=== PATIENT | female | born 1955 | race Caucasian/White ===

== ENCOUNTER 2020-12-19 15:01 | Outpatient (CLI) | payer BC, SELFPAY ==
--- NOTE | ~2020-12-19 | CT_ITS ---
EXAMINATION: CT sinus wo con DATE: 12/19/2020 15:22 INDICATION: Chronic sinusitis TECHNIQUE: Computed tomography (CT) of the paranasal sinuses was performed without contrast. Iterativ e reconstruction technique was employed. Exam dose: 293.24 mGy-cm total exam DLP. COMPARISON: FINDINGS: There is rightward deviation of the nasal septum. There is intralamellar cell of the middle nasal turbinates. The ostiomeatal units are normally developed and aerated. There is minimal mucoperiosteal thickening of the right maxillary sinus. The paranasal sinuses are otherwise normally developed and aerated. There is partial opacification of the right mastoid air cells. The left mastoid air cells are normally developed and aerated. IMPRESSION: Rightward deviation of nasal septum Intralamellar cell of both middle nasal turbinates Minimal mucoperiosteal thickening of right maxillary sinus Reviewed, dictated and finalized at [facility]. Reviewed, dictated and finalized at location A.
== END 2020-12-19 15:02 | disposition home or self-care (01) ==
PROVIDERS: PCP Family Medicine; Visit Provider Otolaryngology
DX: J32.9 Chronic sinusitis, unspecified (principal); J34.2 Deviated nasal septum
CPT/HCPCS: 70486

== ENCOUNTER 2022-01-19 17:37 | Outpatient (CLI) | payer BC, SELFPAY ==
--- NOTE | ~2022-01-19 | CT_ITS ---
EXAMINATION: CT abdomen pelvis wo con DATE: 01/19/2022 18:08 INDICATION: Abdominal pain TECHNIQUE: Computed tomography (CT) of the abdomen and pelvis was performed without intravenous contr ast. Automated exposure control and iterative reconstruction technique were employed. Exam dose: 306 .18 mGy-cm total exam DLP. COMPARISON: None. FINDINGS: The lung bases are clear of infiltrate or consolidation. Small calcified pulmonary granulom a in the posterolateral left costophrenic gutter. Normal heart size. No pericardial or pleural effusion. Bilateral breast implants. History of breast cancer. Occasional left hepatic 4 mm or smaller hypoattenuating lesions, too small to definitively characteri ze, very possibly small hepatic cysts. The gallbladder is present. No pericholecystic fluid or fat stranding or gallbladder wall thickening. No bile duct dilatation. No pancreatic mass lesion, calcification or ductal dilatation. Normal splenic size. Normal morphology of the adrenal glands. No renal mass lesion or urinary tract calculus or hydroureteronephrosis. The urinary bladder is unrem arkable. Retroverted uterus. Normal caliber of the abdominal aorta. No intraperitoneal or retroperitoneal or pelvic mass lesion or adenopathy or ascites. Normal appendix. No bowel obstruction or intraperitoneal free air Diffuse idiopathic skeletal hyperostosis of the thoracic spine Degenerative change of the lumbar spine including severe degenerative disc disease and mild retrolist hesis at L5-S1, moderate degenerative disc disease remaining lumbar interspaces. No suspicious osteolytic or osteoblastic lesions are noted. IMPRESSION: History of breast cancer; bilateral breast implants, likely reconstructive Occasional left hepatic small hypoattenuating lesions, too small to definitively characterize, most l ikely small hepatic cysts Normal appendix Diffuse idiopathic skeletal hyperostosis of the thoracic spine Multilevel degenerative disc disease of the lumbar spine, most severe at L5-S1 Reviewed, dictated and finalized at [facility]. Reviewed, dictated and finalized at location A. IMPRESSION: History of breast cancer; bilateral breast implants, likely recons tructive Occasional left hepatic small hypoattenuating lesions, too small to definitivel y characterize, most likely small hepatic cysts Normal appendix Diffuse idiopathic skeletal hyperostosis of the thoracic spine Multilevel degenerative disc disease of the lumbar spine, most severe at L5-S1
== END 2022-01-19 17:38 | disposition home or self-care (01) ==
PROVIDERS: PCP Family Medicine; Visit Provider Family Medicine
DX: R10.9 Unspecified abdominal pain (principal); Z85.3 Personal history of malignant neoplasm of breast; M48.14 Ankylosing hyperostosis [Forestier], thoracic region; M51.37 Other intervertebral disc degeneration, lumbosacral region
CPT/HCPCS: 74176

== ENCOUNTER 2022-05-01 20:08 | Emergency (ER) | payer BC, SELFPAY ==
--- NOTE | ~2022-05-01 | XR_ITS ---
EXAM: XR shoulder LT min 2V DATE: 05/01/2022 20:36 HISTORY: Fall, injury, pain prox Lt humerus . COMPARISON: None available. FINDINGS: Decreased mineralization. Mildly comminuted, mildly displaced fracture of the left humeral head with involvement of the greater tuberosity. No lytic or blastic lesion. Joint spaces are mainta ined. No erosion or periosteal change. Soft tissues within normal limits. IMPRESSION: Mildly comminuted, mildly displaced fracture of the left humeral head with involvement of the greater tuberosity. Reviewed, dictated and finalized at location K. IMPRESSION: Mildly comminuted, mildly displaced fracture of the left humeral he ad with involvement of the greater tuberosity.
[2022-05-01 20:14] VITALS: BP 136/67; PULSE 113; RESP 20; TEMP 36.7; O2SAT 100
--- NOTE | 2022-05-01 21:01 | ED.FALL ---
HPI - Fall General Chief Complaint: Fall Stated Complaint: fall, right arm pain Time Seen by Provider: 05/01/22 20:26 History of Present Illness HPI Narrative: 67-year-old female presents the emergency room for evaluation of left shoulder pain. Patient states that she was chasing her grandchildren at home, when she tripped and fell landing directly on her left shoulder. Patient states following the injury she was unable to move the shoulder. Denies any other injuries. Related Data Home Medications Medication Instructions Recorded Confirmed acidophilus 100 million 1 cap PO HS 05/28/19 04/26/22 cell-pectin, citrus 10 mg capsule (Acidophilus Probiotic) ascorbic acid (vitamin C) 500 mg 1,500 mg PO DAILY 05/28/19 04/26/22 tablet budesonide 32 mcg/actuation nasal 2 spray intranasal DAILY 05/28/19 04/26/22 spray (Rhinocort Allergy) calcium carbonate 600 mg calcium 1,800 mg PO DAILY 05/28/19 04/26/22 (1,500 mg) tablet (Calcium) cholecalciferol (vitamin D3) 125 7,000 unit PO DAILY 05/28/19 04/26/22 mcg (5,000 unit) tablet (Vitamin D3) loratadine 10 mg tablet (Claritin) 10 mg PO DAILY 05/28/19 04/26/22 multivitamin 1 tablet PO DAILY 05/28/19 04/26/22 vitamin B complex 1 tablet PO DAILY 05/28/19 04/26/22 cyanocobalamin (vitamin B-12) 2,500 mcg PO DAILY 04/06/22 04/26/22 2,500 mcg tablet Allergies Allergy/AdvReac Type Severity Reaction Status Date / Time sulfite Allergy Unknown FLUSHING, Verified 05/01/22 21:02 BREATHING PROBLEMS Beef Containing Products AdvReac Flushing Verified 05/01/22 21:02 cyclobenzaprine AdvReac Flushing Verified 05/01/22 21:02 [From Flexeril] monosodium glutamate AdvReac FLUSHING, Verified 05/01/22 21:02 SOB Review of Systems Review of Systems: CONSTITUTIONAL: Denies fever, chills, or sweats. EYES: Denies visual changes, redness, or discharge. ENT: Denies rhinorrhea, congestion, sore throat, or otalgia. CARDIOVASCULAR: Denies chest pain, palpitations, or edema. RESPIRATORY: Denies cough or dyspnea. GASTROINTESTINAL: Denies abdominal pain, nausea, vomiting, or diarrhea. GENITOURINARY: Denies dysuria or hematuria. SKIN: Denies rash or itching. MUSCULOSKELETAL: Reports left shoulder pain NEUROLOGIC: Denies headache, numbness, dizziness, or weakness. PSYCHIATRIC: Denies anxiety or depression. [facility] Past Medical History Medical History Allergies Hyperlipidemia Surgical History Surgical History Carpal tunnel syndrome on both sides Fracture, ankle History of breast reconstruction Family History Family History Father Patient's father is Acute myocardial infarction Mother Diabetes mellitus Hypertension Social History Social History Smoking status: Never smoker Alcohol intake: current Drinks per week: 2 Alcohol use details: wine Substance use: never Gender identity (if verbalized by the patient): Female Spiritual care concerns: No Exam Narrative: GENERAL: Well-appearing, well-nourished, no physical limitations, and in no acute distress. HEAD: Normocephalic, atraumatic. EYES: Conjunctivae normal, PERRLA and EOMI. CHEST: Clear to auscultation. No respiratory distress. No wheezes rales or rhonchi. HEART: Regular rate and rhythm. No murmur heard. Normal peripheral pulses. EXTREMITIES: LUE: Over the left humeral head. No obvious bony abnormality or ecchymosis. Unable to assess for range of motion due to pain. Full range of motion of the elbow and wrist joints. Neurovascular is intact distally. SKIN: Warm, dry, no rash. No noted wounds NEURO: No focal deficits. Alert and oriented x3. MAEW. CN's II-XI intact bilaterally, normal gait PSYCH: Cooperative. Normal mood and affect. Course Vital Si
[2022-05-01] MEDS: HYDROcodone/acetaminophen (*CRX) 5-325 MG TABLET 1 TAB PO (21:05)
== END 2022-05-01 21:29 | disposition home or self-care (01) ==
LOC: ANHED 21:23
PROVIDERS: Emergency Provider Nurse Practitioner Family; PCP Family Medicine
DX: S42.292A Other displaced fracture of upper end of left humerus, initial encounter for closed fracture (principal); W01.0XXA Fall on same level from slipping, tripping and stumbling without subsequent striking against object, initial encounter; E78.5 Hyperlipidemia, unspecified
CPT/HCPCS: 73030; 99284; A4565; A9270

== ENCOUNTER 2022-05-05 14:35 | Outpatient (CLI) | payer BC, SELFPAY ==
--- NOTE | ~2022-05-05 | CT_ITS ---
EXAMINATION: CT brain wo con DATE: 05/05/2022 14:54 INDICATION: Headache. Fall. TECHNIQUE: Computed tomography (CT) of the head was performed without intravenous contrast. The mA wa s adjusted according to patient size. Iterative reconstruction technique was employed. The dose-lengt h product was 605.33 mGy-cm. COMPARISON: None FINDINGS: There is no intracranial hemorrhage, acute infarction, or abnormal intracranial mass lesion . The ventricles are normal in size. The paranasal sinuses are clear. The orbits are normal. There is a small right mastoid effusion. IMPRESSION: 1. Normal brain. Reviewed, dictated and finalized at location B. IMPRESSION: 1. Normal brain.
== END 2022-05-05 14:36 | disposition home or self-care (01) ==
PROVIDERS: PCP Family Medicine; Visit Provider Family Medicine
DX: R51.9 Headache, unspecified (principal)
CPT/HCPCS: 70450

== ENCOUNTER 2022-07-05 13:15 | Outpatient (RCR) | payer BC, SELFPAY ==
[2022-06-14 09:30] VITALS: BP_SYST 66
--- NOTE | 2022-06-14 10:38 | PTOPEVAL1 ---
Assessment and note entered by Leo Wood, PT, DPT Evaluation Information Assessment Status Evaluation Diagnosis L prominal humerus fracture Onset 05/01 Subjective Information Pt reports today with a non operative L humerus fracture. She states she was told she could lift the weight of a fork or a spoon. She wears a sling only when her pain increases or when she is out in public. Her goals are to return to exercising and keep up with her grandkids. She states her pain in a 9 when she tries to use her arm. She is currently controlling her pain with extra strength Tylenol. Reported Pain Level Pain Score 1: Self Report Assessment PT Clinical Summary Sheila Khan is a 67 y/o female who presents to therapy today for her initial evaluation with a diagnosis of a L proximal humerus fracture. Today she demonstrates significant limitations in her ROM and active strength when compared to her uninvolved side. She demonstrates active shoulder flexion and abduction to ~30 deg ea. She is also lacking 30 degs from terminal elbow extension. Her passive shoulder motion is also limited by pain this date. Skilled physical therapy services are indicated to progress both active and passive ROM, improve strength, manage pain, to limit impairment, and to return to an unlimited baseline function. Plan of Care Interventions Electrical Stimulation,Hot Pack/Cold Pack,Manual Therapy,Neuro Re-education,Patient/Caregiver Educati,Therapeutic Activities,Therapeutic Exercise PT Services Indicated Yes Treatment Frequency and 2x/wk for 5 wks Duration These treatments will address the objective and functional deficits as defined above. The patient will be advanced safely and appropriately in order for the patient to progress towards his/her prior level of function. Additional exercises will be introduced and as well as a comprehensive home exercise program upon discharge, if needed, ?to ensure carryover of functional gains achieved in the clinic. This treatment plan has been reviewed and agreement upon by the patient.
--- NOTE | 2022-07-09 08:33 | PCPTNOTE ---
Patient called to cancel this date due to weather.
--- NOTE | 2022-07-13 07:56 | PCPTNOTE ---
Patient reports she is having a lot of pain and is contacting her MD today.
--- NOTE | 2022-07-14 16:15 | PCPTNOTE ---
Patient canceled her treatment this date due to pain in her knee.
--- NOTE | 2022-07-20 08:51 | PTOPDC ---
Assessment and note entered by Leo Wood, PT, DPT Evaluation Information Assessment Status Discharge - Pt Not Present Diagnosis L prominal humerus fracture Onset 05/01 Subjective Information Pt called the clinic and cancelled all of her remaining appointments. Per pt, her MD recommended that she stop physical therapy. Assessment PT Clinical Summary Sheila has completed 7 visits of therapy from 06/14 to 07/05/22. She will be discharged at this time. If she is to return at a later date, she will need a new order. Plan of Care Treatment Frequency and to be discharged Duration
== END 2022-07-21 15:42 | disposition home or self-care (01) ==
LOC: ANHGOSHPT 13:15
PROVIDERS: PCP Family Medicine; Visit Provider Orthopaedic Surgery
DX: S42.212D Unspecified displaced fracture of surgical neck of left humerus, subsequent encounter for fracture with routine healing (principal)
CPT/HCPCS: 97110; 97140; 97161

== ENCOUNTER 2022-07-16 01:56 | Day surgery (SDC) | payer BC, SELFPAY ==
[2022-04-26 15:09] VITALS: BMI 25.0
--- NOTE | 2022-06-23 09:22 | PC.NURSE ---
Pt was rescheduled from 05/13/22 to 07/01/22. PAT call was complete on 04/26/22. Called patient today. Patient states nothing has changed with her health history or medication information since the last PAT call, besides left broken humerus. Aware of new date and time of 07/01/22 at 0900/1030. Questions answered. Verbalizes understanding.
[2022-07-05 12:59] VITALS: BMI 25.0
[2022-07-16 12:19] VITALS: BP 143/57; PULSE 100; RESP 20; TEMP 36.7; O2SAT 98
[2022-07-16] MEDS: LACTATED RINGERS 1,000 ML 150 ML IV CONT (12:23)
--- NOTE | 2022-07-16 12:57 | PM.HPGS ---
History of Present Illness History of Present Illness Consent: Risks, benefits, and alternatives have been discussed and questions answered. Patient agrees to proceed with procedure. Chief complaint: epigastric pain, neoplasm screening Narrative: Sheila Ventura is a 67 year old female referred for investigation of persistent left upper quadrant and epigastric pain. She is also due for colon cancer screening. Review of Systems Review of Systems: All systems reviewed & are unremarkable except as noted in HPI and below PMFSH Past Medical History Medical History Allergies Breast cancer Fracture of surgical neck of left humerus Hyperlipidemia Surgical History Surgical History Carpal tunnel syndrome on both sides Fracture, ankle History of breast reconstruction Family History Family History Father Patient's father is Acute myocardial infarction Mother Diabetes mellitus Hypertension Social History Social History Smoking status: Never smoker Alcohol intake: current Drinks per week: 2 Alcohol use details: wine Substance use: never Living arrangements: with family Gender identity (if verbalized by the patient): Female Spiritual care concerns: No Meds Home Medications and Allergies Home Medications Medication Instructions Recorded Confirmed Type acidophilus 100 million 1 cap PO HS 05/28/19 07/15/22 History cell-pectin, citrus 10 mg capsule (Acidophilus Probiotic) ascorbic acid (vitamin C) 500 mg 1,500 mg PO DAILY 05/28/19 07/15/22 History tablet budesonide 32 mcg/actuation nasal 2 spray intranasal DAILY 05/28/19 07/15/22 History spray (Rhinocort Allergy) calcium carbonate 600 mg calcium 1,800 mg PO DAILY 05/28/19 07/15/22 History (1,500 mg) tablet (Calcium) cholecalciferol (vitamin D3) 125 7,000 unit PO DAILY 05/28/19 07/15/22 History mcg (5,000 unit) tablet (Vitamin D3) loratadine 10 mg tablet (Claritin) 10 mg PO DAILY 05/28/19 07/15/22 History multivitamin 1 tablet PO DAILY 05/28/19 07/15/22 History vitamin B complex 1 tablet PO DAILY 05/28/19 07/15/22 History cyanocobalamin (vitamin B-12) 2,500 mcg PO DAILY 04/06/22 07/15/22 History 2,500 mcg tablet ondansetron 4 mg disintegrating 4 mg PO Q6H PRN nausea and 04/06/22 07/15/22 Rx tablet vomiting #10 tabs acetaminophen 500 mg tablet 500 mg PO Q6H PRN Pain 06/09/22 07/15/22 History (Tylenol Extra Strength) ibuprofen 200 mg tablet (Motrin IB) 200 mg PO Q6H PRN Allergic Reaction 07/15/22 07/16/22 History methylprednisolone 4 mg tablets in See Rx Instructions PO PER PKG DIR 07/15/22 07/16/22 Rx a dose pack (Medrol (Vadim)) #21 ea Allergies Allergy/AdvReac Type Severity Reaction Status Date / Time sulfite Allergy Unknown FLUSHING, Verified 07/16/22 12:18 BREATHING PROBLEMS Beef Containing Products AdvReac Flushing Verified 07/16/22 12:18 cyclobenzaprine AdvReac Flushing Verified 07/16/22 12:18 [From Flexeril] monosodium glutamate AdvReac FLUSHING, Verified 07/16/22 12:18 SOB Vital Signs Vital Signs - 24 hr 07/16/22 12:19 Temperature 36.7 C Pulse Rate 100 Respiratory Rate 20 Blood Pressure 143/57 H Pulse Oximetry 98 Oxygen Delivery Room Air Exam Const: General: alert Orientation/consciousness: patient oriented x3 Resp: Auscultation: clear to auscultation bilaterally Cardio: Rhythm: regular rhythm GI: GI Palp: Yes Soft to palpation and No Tenderness to palpation present (GI) Neuro: General: patient oriented x3 Assessment and Plan Assessment and plan (1) Epigastric pain: Code(s): R10.13 - Epigastric pain Status: Acute Assessment and Plan: EGD with possible biopsy or dilatation or cautery. (2) Encount
--- NOTE | 2022-07-16 12:59 | WPDANESEPPF ---
Anes - Initial Pre Proc Eval Procedure: Operation Date: 07/16/22 13:30 Proposed Procedures p Esophagogastroduodenoscopy & Screening Colonoscopy - Stan Power MD Date/Time: 07/16/22 12:59 Surgeon: Stan Power MD Pre Op Diagnosis: epigastric pain, neoplasm screening Patient Data Age: 67 Gender: F Height: 1.55 m Weight: 59.5 kg Last Vital Signs Temp 36.7 C 07/16/22 12:19 Pulse 100 07/16/22 12:19 Resp 20 07/16/22 12:19 BP 143/57 H 07/16/22 12:19 Pulse Ox 98 07/16/22 12:19 O2 Del Method Room Air 07/16/22 12:19 Allergies Allergy/AdvReac Type Severity Reaction Status Date / Time sulfite Allergy Unknown FLUSHING, Verified 07/16/22 12:18 BREATHING PROBLEMS Beef Containing Products AdvReac Flushing Verified 07/16/22 12:18 cyclobenzaprine AdvReac Flushing Verified 07/16/22 12:18 [From Flexeril] monosodium glutamate AdvReac FLUSHING, Verified 07/16/22 12:18 SOB Home Medications Medication Instructions Recorded Confirmed Type acidophilus 100 million 1 cap PO HS 05/28/19 07/15/22 History cell-pectin, citrus 10 mg capsule (Acidophilus Probiotic) ascorbic acid (vitamin C) 500 mg 1,500 mg PO DAILY 05/28/19 07/15/22 History tablet budesonide 32 mcg/actuation nasal 2 spray intranasal DAILY 05/28/19 07/15/22 History spray (Rhinocort Allergy) calcium carbonate 600 mg calcium 1,800 mg PO DAILY 05/28/19 07/15/22 History (1,500 mg) tablet (Calcium) cholecalciferol (vitamin D3) 125 7,000 unit PO DAILY 05/28/19 07/15/22 History mcg (5,000 unit) tablet (Vitamin D3) loratadine 10 mg tablet (Claritin) 10 mg PO DAILY 05/28/19 07/15/22 History multivitamin 1 tablet PO DAILY 05/28/19 07/15/22 History vitamin B complex 1 tablet PO DAILY 05/28/19 07/15/22 History cyanocobalamin (vitamin B-12) 2,500 mcg PO DAILY 04/06/22 07/15/22 History 2,500 mcg tablet ondansetron 4 mg disintegrating 4 mg PO Q6H PRN nausea and 04/06/22 07/15/22 Rx tablet vomiting #10 tabs acetaminophen 500 mg tablet 500 mg PO Q6H PRN Pain 06/09/22 07/15/22 History (Tylenol Extra Strength) ibuprofen 200 mg tablet (Motrin IB) 200 mg PO Q6H PRN Allergic Reaction 07/15/22 07/16/22 History methylprednisolone 4 mg tablets in See Rx Instructions PO PER PKG DIR 07/15/22 07/16/22 Rx a dose pack (Medrol (Vadim)) #21 ea Patient hx anesthesia problems: none Family hx anesthesia problems: none Results Review: All pre-operative results and documents have been reviewed as part of the pre-operative evaluation. [facility] Past Medical History Medical History Allergies Breast cancer Fracture of surgical neck of left humerus Hyperlipidemia Surgical History Surgical History Carpal tunnel syndrome on both sides Fracture, ankle History of breast reconstruction Family History Family History Father Patient's father is Acute myocardial infarction Mother Diabetes mellitus Hypertension Social History Social History Smoking status: Never smoker Alcohol intake: current Drinks per week: 2 Alcohol use details: wine Substance use: never Living arrangements: with family Gender identity (if verbalized by the patient): Female Spiritual care concerns: No Anes - Eval Final PreProcedure Day of Procedure 07/16/22 12:59 Patient weight: normal Heart: regular rate and rhythm Lungs: clear to auscultation and normal air movement Airway: Mallampati scale class II Neurological: alert and oriented Last oral intake: >/= 8 hours ASA classification: II Emergent: no Anesthetic plan: proceed Anesthesia type and monitoring: general GIVS and standard monitoring Results Review: All pre-operative results and documents have been reviewed as part of t
[2022-07-16] MEDS: BENZOCAINE (*SP) 60 ML SPRAY CAN (HURRICAINE) 1 SPRAY MUCOUS MEM (13:13)
--- NOTE | 2022-07-16 13:35 | SUR.OPER ---
EGD START 1314, END 1317 COLONOSCOPY START 1323, END 1334
[2022-07-16 13:38] VITALS: BP 114/69; PULSE 70; RESP 17; O2SAT 95
[2022-07-16 13:48] VITALS: BP 113/72; PULSE 71; RESP 18; O2SAT 95
[2022-07-16 13:58] VITALS: BP 123/74; PULSE 82; RESP 19; O2SAT 98
== END 2022-07-16 14:10 | disposition home or self-care (01) ==
PROVIDERS: PCP Family Medicine; Visit Provider Internal Medicine Gastroenterology
PROC: 0DJ08ZZ Inspection of Upper Intestinal Tract, Via Natural or Artificial Opening Endoscopic (ICD-10-PCS; CPT 43235; principal; 2022-07-16 13:30)
DX: Z12.11 Encounter for screening for malignant neoplasm of colon (principal); K64.8 Other hemorrhoids; K21.9 Gastro-esophageal reflux disease without esophagitis; Z85.3 Personal history of malignant neoplasm of breast
CPT/HCPCS: 45378; 43239; 87081; J2704; J7120

== ENCOUNTER 2022-09-16 10:06 | Outpatient (CLI) | payer BC, SELFPAY ==
--- NOTE | ~2022-09-16 | US_ITS ---
US right upper quadrant INDICATION: Abdominal pain PROCEDURE: Realtime right upper abdominal ultrasound. COMPARISON: No prior studies for comparison. FINDINGS: The pancreas is normal without focal mass or pancreatic ductal dilation. Liver echotexture is increased, consistent with fatty infiltration. There is a 7 mm cyst of the liver. There is yeni l directional flow in the portal vein. The gallbladder is normal without stones, gallbladder wall thickening or pericholecystic fluid. Comm on bile duct measures 2 mm. No sonographic Alcantar's sign. IMPRESSION: 1: Hepatic steatosis. Reviewed, dictated and finalized at location L. NESS DEVELOPMENT RECRUITER IMPRESSION: 1: Hepatic steatosis.
--- NOTE | ~2022-09-16 | US_ITS ---
US soft tissue head and neck 09/16/2022 10:43 Indication: Palpable abnormality of the anterior neck just superior to the manubrium. Procedure: High-resolution ultrasound of the anterior neck in the area of palpable concern Comparison: No prior studies for comparison. Findings: There is normal heterogeneous echotexture in the area of palpable concern. No discrete yazmin d or cystic masses are identified Impression: 1: Normal limited ultrasound of the anterior aspect of the neck in the area of palpable concern. No d iscrete mass. Reviewed, dictated and finalized at location L. PRESIDENT OF PROCUREMENT Impression: 1: Normal limited ultrasound of the anterior aspect of the neck in the area of palpable concern. No discrete mass.
== END 2022-09-16 10:07 | disposition home or self-care (01) ==
PROVIDERS: PCP Family Medicine; Visit Provider Family Medicine
DX: R10.9 Unspecified abdominal pain (principal); R22.1 Localized swelling, mass and lump, neck; K76.0 Fatty (change of) liver, not elsewhere classified
CPT/HCPCS: 76536; 76705

== ENCOUNTER 2022-11-05 13:21 | Outpatient (CLI) | payer BC, SELFPAY ==
--- NOTE | ~2022-11-05 | DEXA_ITS ---
Bone Density Report Name: MATT BERRY Age: 67 Sex: Female Ethnicity: White Date of : 1955 Indication: postmenopausal; screening for osteoporosis; prior fracture; cancer; Referring Provider: ARTUR LOZANO Study: Bone densitometry was performed. Exam Date: November 05, 2022 Accession number: [id number] Bone Density: Region BMD T-score Z-score Classification AP Spine(L1-L4) 0.853 -1.8 0.2 Osteopenia Femoral Neck (Left) 0.602 -2.2 -0.6 Osteopenia Total Hip (Left) 0.796 -1.2 0.2 Osteopenia Femoral Neck (Right) 0.652 -1.8 -0.1 Osteopenia Total Hip (Right) 0.820 -1.0 0.4 Normal Total Hip Mean 0.808 -1.1 0.3 Osteopenia World Health Organization criteria for BMD impression classify patients as: Normal (T-score at or above -1.0), Osteopenia (T-score between -1.0 and -2.5), or Osteoporosis (T-score at or below -2.5). 10-year Fracture Risk(1): Major Osteoporotic Fracture 19% Hip Fracture 3.6% Reported Risk Factors: [place] (), Neck BMD=0.602, BMI=25.3, previous fracture (1) FRAX(R) Version 3.08. Fracture probability calculated for an untreated patient. Fracture probability may be lower if the patient has received treatment. Clinical Information Provided by Patient: Has had a low trauma fracture Has used the following medications: Vitamin D, Calcium Has the following medical conditions: Cancer Patient maximum height was 61 Menopause Age: 54 Does not regularly consume dairy products Drinks caffeinated beverages Onset of menses at age 12 Number of children 3 Impression: The patient has low bone mass, based on the Left Femoral Neck T-score. The patient has an estimated ten-year risk of hip fracture of 3.6% and an estimated ten-year risk of major fracture of 19%, based on the WHO FRAX algorithm. The patient has risk factors, including: previous fracture. Discussion: BONE DENSITY IS LOW AT ONE OR MORE SKELETAL SITES. THE PATIENT'S BMD AND CLINICAL RISK FACTORS CONTRIBUTE TO THIS PATIENT'S INCREASED RISK OF FRACTURE. This patient's lowest T-score is low at one or more skeletal sites. It meets the World Health Organization's (WHO) criteria for ?low bone mass? (T-score between -1.0 and -2.5). The patient's 10-year risk of hip fracture as calculated by FRAX exceeds the threshold where pharmacological therapy is recommended by the National Osteoporosis Foundation (NOF). However, all treatment decisions require clinical judgment and consideration of individual patient factors, including patient preferences, comorbidities, previous drug use, risk factors not captured in the FRAX model (e.g., frailty, falls, vitamin D deficiency, increased bone turnover, interval significant decline in bone density) and possible under or overestimation of fracture risk by FRAX. The patient should fo
== END 2022-11-05 13:22 | disposition home or self-care (01) ==
PROVIDERS: PCP Family Medicine; Visit Provider Family Medicine
DX: Z78.0 Asymptomatic menopausal state (principal); M85.88 Other specified disorders of bone density and structure, other site; M85.852 Other specified disorders of bone density and structure, left thigh; M85.851 Other specified disorders of bone density and structure, right thigh
CPT/HCPCS: 77080

== ENCOUNTER → 2022-11-18 07:29 | Outpatient (CLI) | payer BC, SELFPAY ==
--- NOTE | ~2022-11-18 | MR_ITS ---
EXAMINATION: MR knee LT wo con DATE: 11/18/2022 08:13 INDICATION: Left knee pain TECHNIQUE: Magnetic resonance imaging (MRI) of the left knee was performed without intravenous contra st. Sequences included coronal PD-weighted FSE, coronal PD-weighted FS FSE, sagittal T2-weighted FSE , sagittal PD-weighted FS FSE and axial PD weighted fat saturated FSE. COMPARISON: None. FINDINGS: Medial compartment: Avulsion of the posterior root of the medial meniscus. Mild partial-thickness cartilage loss with cho ndral surface regularity and mild scattered subarticular edema-like signal change along the anterior to central weightbearing medial femoral condyle. Is unclear where the edema-like signal change is rel ated to the overlying chondromalacia or reactive change related to altered stress distribution result ing from the meniscal tear. Cartilage is normal along the medial tibial plateau. Lateral compartment: Lateral meniscus is normal. Articular cartilage is normal. Patellofemoral compartment: Articular cartilage is normal. Ligaments and tendons: Anterior and posterior cruciate ligaments are normal. The medial collateral ligament and fibular ankit ateral ligament complex are normal. The extensor mechanism is normal. The visualized medial and later al hamstring tendons as well as the iliotibial band are normal. Fluid: Small left knee joint effusion. There is a suprapatellar plical band. No loose osteochondral bodies i dentified. Osseous/other: Aside from at the medial femoral condyle there is normal marrow signal. No fracture or pathologic mar row replacing process. IMPRESSION: 1. Avulsion of the posterior root of the medial meniscus. 2. 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 Reviewed, dictated and finalized at location L. IMPRESSION: 1. Avulsion of the posterior root of the medial meniscus. 2. Mild osteoarthritis with moderate to potentially high-grade chondromalacia a long the medial femoral condyle.
== END ==
PROVIDERS: PCP Family Medicine; Visit Provider Orthopaedic Surgery
DX: M17.12 Unilateral primary osteoarthritis, left knee (principal)
CPT/HCPCS: 73721

== ENCOUNTER 2023-08-19 00:32 | Day surgery (SDC) | payer BC, SELFPAY ==
--- NOTE | 2023-08-12 11:00 | PC.NURSE ---
Report to the Outpatient Waiting Room, entrance under the green pavilion located off [facility], at time _0630 on date _08/19/23 . Planned Procedure Time: 0830 . Time changes happen often and if your time is changed the preop area will call you the afternoon before. - You and your visitor will be asked to self-screen and do not enter if you have any COVID symptoms. - A mask is optional within the hospital at this time. Patients may have clear liquids (water, carbonated beverages, clear teas, apple juice) until 3 hours prior to surgery(0530) with a maximum of 20 ounces. - No food from midnight until time of surgery - Infants may have breast milk until 4 hours before surgery, infant formula 6 hours prior to surgery. - Children will be allowed to drink immediately following surgery. If applicable, please bring a bottle or sippy cup to assist with drinking. Juice, water, soda, and popsicles are readily available. For infants on formula, please bring formula the day of surgery. Pacifiers are allowed. Take the following medications with a SIP of water the morning of surgery: __NONE DO NOT STOP ANY OF YOUR OTHER PRESCRIPTION MEDICATIONS PRIOR TO SURGERY ?EXCEPT THE FOLLOWING Medications to discontinue per physician __PT STATES HOLD ALL VITAMINS AND SUPPLEMENTS .LAST DOSE 08/12/[address] ALEXIS Please no make-up, nail vietnamese, hairspray, perfume, deodorant, or body powder the day of surgery. No jewelry (including any body piercings) or valuables the day of surgery, leave them at home. Please take a shower or bath the night before, or the morning of, surgery with an antibacterial soap. Wear comfortable, loose fitting clothing. Children are encouraged to wear pajamas. - Jewelry must be removed prior to entering the operating room. Rings and piercings that are not removed may be cut off. - The hospital will not accept responsibility for valuables. - Please leave all valuables, including medications, at home the day of surgery. If you are going home after surgery, a licensed lift driver must drive you home. - NO public transportation without another adult if you receive anesthesia. - We recommend that an adult stay with you for 24 hours following discharge. - We also recommend that you do not drive, make important decision, drink alcoholic beverages, or take any drugs that were not prescribed by your health care provider for at least 24 hours after your discharge time. For Pediatric surgeries, we recommend two adults accompany the child home. Follow any additional instructions given to you from your surgeon. If you or anyone in your household have experienced Covid symptoms in the past week, please notify your surgeon or the nurse liaison at the phone number below for possible testing. Telephone instructions given to __PATIENT and asked if any additional questions and then verbalized understanding. Patient advised to call surgeon office or pre surgery nurse liaison [phone] if any additional questions.
[2023-08-12 11:07] VITALS: BMI 24.9
[2023-08-19] VITALS (7 sets, daily range): BP systolic 108–141; BP diastolic 60–72; PULSE 60–95; RESP 10–20; TEMP 36.7–37; O2SAT 96–100
--- NOTE | ~2023-08-19 | XR_ITS ---
EXAMINATION: XR surgery orthopedic DATE: 08/19/2023 09:48 INDICATION: Left foot arthrodesis. TECHNIQUE: 2 intraoperative spot fluoroscopic views of left foot were obtained. I was not present. Fl uoroscopy exposure time was 11 seconds. COMPARISON: Left foot radiographs 09/08/2017 FINDINGS: There are changes of arthrodesis procedure of first metatarsophalangeal joint with dorsal p late and multiple screws. A calcification medial to head of first metatarsal has been resected. IMPRESSION: 1. Arthrodesis of first metatarsophalangeal joint. Reviewed, dictated and finalized at location A. C BOOK ARTIST
--- NOTE | 2023-08-19 07:12 | WPDHPUPDATE1 ---
History and Physical Update Update Date/Time: 08/19/23 07:12 History and Physical has been reviewed, including an updated exam of the patient. There are NO changes in the patient's condition. Risks, benefits, and alternatives have been discussed and questions answered. Patient agrees to proceed with procedure.
[2023-08-19] MEDS: LACTATED RINGERS 1,000 ML 30 ML IV CONT ×2 (07:20→09:50)
--- NOTE | 2023-08-19 08:05 | WPDANESEPPF ---
Anes - Initial Pre Proc Eval Procedure: Operation Date: 08/19/23 08:30 Proposed Procedures p Arthrodesis First Metatarsal Phalangeal Joint Left Foot - Jovon Vargas JR, MD Date/Time: 08/19/23 08:05 Surgeon: Jovon Vargas JR, MD Pre Op Diagnosis: Arthroitic Bunion Lt Foot Patient Data Age: 68 Gender: F Height: 1.55 m Weight: 60.1 kg Last Vital Signs Temp 98.0 F 08/19/23 06:40 Pulse 83 08/19/23 06:40 Resp 20 08/19/23 06:40 BP 141/66 H 08/19/23 06:40 Pulse Ox 99 08/19/23 06:40 O2 Del Method Room Air 08/19/23 06:40 Allergies Allergy/AdvReac Type Severity Reaction Status Date / Time sulfite Allergy Mild FLUSHING, Verified 08/12/23 10:48 BREATHING PROBLEMS cyclobenzaprine AdvReac Severe DRY EYES Verified 08/12/23 10:48 [From Flexeril] Beef Containing Products AdvReac Mild Gastrointestinal Verified 08/12/23 10:48 Upset monosodium glutamate AdvReac Mild FLUSHING, Verified 08/12/23 10:48 SOB Home Medications Medication Instructions Recorded Confirmed Type acidophilus 100 million 1 cap PO HS 05/28/19 08/19/23 History cell-pectin, citrus 10 mg capsule (Acidophilus Probiotic) ascorbic acid (vitamin C) 500 mg 1,500 mg PO DAILY 05/28/19 08/19/23 History tablet budesonide 32 mcg/actuation nasal 2 spray intranasal DAILY 05/28/19 08/19/23 History spray (Rhinocort Allergy) calcium carbonate 600 mg calcium 600 mg PO BID 05/28/19 08/19/23 History (1,500 mg) tablet (Calcium) cholecalciferol (vitamin D3) 125 5,000 unit PO DAILY 05/28/19 08/19/23 History mcg (5,000 unit) tablet (Vitamin D3) loratadine 10 mg tablet (Claritin) 10 mg PO DAILY 05/28/19 08/19/23 History vitamin B complex 1 tablet PO DAILY 05/28/19 08/19/23 History magnesium 200 mg tablet 400 mg PO DAILY 08/12/23 08/19/23 History Patient hx anesthesia problems: none Family hx anesthesia problems: none Results Review: All pre-operative results and documents have been reviewed as part of the pre-operative evaluation. [facility] Past Medical History Medical History Allergies Ankle fracture Asymptomatic menopausal state Breast cancer (~2010) Dizziness Fracture of surgical neck of left humerus Hyperlipidemia Left knee pain Osteopenia Pes anserinus bursitis of left knee Surgical History Surgical History H/O colonoscopy H/O esophagogastroduodenoscopy History of breast reconstruction History of carpal tunnel surgery (~2009) (B) wrists History of mastectomy (~2010) History of open reduction and internal fixation (ORIF) procedure (~05/2019) (L) ankle Hx of LASIK (~2001) Family History Family History Father Patient's father is Acute myocardial infarction Heart disease Mother Diabetes mellitus Hypertension Kidney disease Other Carcinoma of colon maternal aunt Grandparent Carcinoma of colon maternal grandmother Social History Social History (Updated 08/10/23 @ 10:19 by ELISA Echeverria) Smoking status: Never smoker Second hand tobacco smoke exposure: No Alcohol intake: current Drinks per week: 2 Alcohol use details: wine Substance use: never Substance use type: does not use Do You Feel Safe in your Home?: Yes Lack of Transportation: No Lack of Food: Never True Current Housing: I Have Housing Concerned About Future Housing: No Difficulty Paying Gas/Electric Bills: No Difficulty Paying for Meds: No 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ation: Associate Degree Difficulty w/ Childcare or Family Care: No Living arrangements: with family Additional living arrangements comments: Occupation/Education: retired Gender identity (if verbalized by the patient): Female Sexual Orientation (if Verbalized by the Patient): Stra
[2023-08-19] MEDS: ceFAZolin 2 GM/D5W 50 ML 2 GM/50 ML BAG IVPB (08:36)
--- NOTE | 2023-08-19 09:57 | WPDANESPNB ---
Anes - Peripheral Nerve Block Date/Time: 08/19/23 09:57 I have discussed with the patient/family/POA the placement of a peripheral nerve block for post-operative pain management, including associated risks, benefits, complications, and side effects. Alternative methods of post-operative analgesia were detailed. Questions were solicited and answers provided to the satisfaction of the patient/family/POA. Time-Out: A pre-procedural Time-Out was completed immediately before starting the procedure and confirmed: Patient Identification, Site, Procedure, Patient Position and the Availability of Requisite Equipment. Clinical Indications: Acute post-operative pain management requested by the operative surgeon. Nerve Block Insertion Note Anes-nerve block: posterior fossa sciatic left and other (Saphenous left) Patient position: supine Skin prep: chlorhexidine Needle: 22 gauge, stimulating, insulated echogenic needle. Needle length: 80 mm Technique: nerve stimulation lost at (mA) (0.3) Technique comment: mid2mg [id number] Injectate: bupivacaine 0.5% with epi 5 mcg/ml (20/10ml no epi) and dexamethasone (mg) (4) Observations: tolerated well Complications: none Procedure start time:: 822 Procedure end time:: 829
--- NOTE | 2023-08-19 10:00 | W.PM.PROC2 ---
Procedure Note - Detailed Date of Procedure 08/19/23 Pre-op Diagnosis Arthritic Bunion Left Foot Post-op Diagnosis Same Procedure Performed Arthrodesis of the first metatarsal phalangeal joint left foot Surgeon Jovon Vargas JR, MARITZA Anesthesia General and Regional Indications Painful left forefoot Findings same Description of Procedure PROCEDURE IN DETAIL: Under mild sedation, the patient was brought into the operating room, placed on the operating table in supine position. A pneumatic ankle tourniquet was placed about the patient's ipsilateral ankle. Following general anesthesia and a popliteal fossa block, the foot was then scrubbed, prepped, and draped in the usual aseptic manner. An Esmarch bandage was then used to exsanguinate the patient's foot and the pneumatic ankle tourniquet was then inflated. Surgery began in the following manner: Attention was directed to the dorsal medial aspect of the 1st metatarsophalangeal joint where there was a prominence was noted. The incision was made starting along the central shaft of the 1st metatarsal and extending just proximal to the interphalangeal joint of the hallux. The incision was continued deep down through the subcutaneous tissues using sharp and blunt dissection. All bleeders were cauterized as necessary. At this point, the dissection was continued down to the level of the periosteum and capsular structures overlying the 1st metatarsophalangeal joint. A full length periosteum and capsular incision was made just medial to the extensor hallucis longus tendon. The periosteum and capsular structures were freed from the base of the proximal phalanx as well as the distal 1st metatarsal. At this point, the 1st metatarsophalangeal joint was identified. There was loss of articular cartilage to the head of the 1st metatarsal as well as the base of the proximal phalanx worse centrally and medially. There was significant broadening and hypertrophy of the 1st metatarsophalangeal joint. Utilizing a sagittal bone saw, the hypertrophied 1st metatarsal was resected dorsally, medially, and laterally. A power bur was used to make sure that there were no rough edges and also to further d?bride the hypertrophic 1st metatarsal. Next, a rongeur was used to resect the hypertrophic base of the proximal phalanx. At this point, the reamer system for the Maxforce plate system was used to denude the degenerative cartilage from the head of the 1st metatarsal as well as the base of the proximal phalanx. The cartilage and subchondral bone were fully debrided utilizing the reamer system until healthy bleeding bone was noted. Next, a 2-0 drill bit was used to further fenestrate the head of the 1st metatarsal as well as the base of the proximal phalanx in order to allow fusion across the 1st metatarsophalangeal joint. Next, a guide wire for a 3.0 Cannulated Arthrex Quickfix screw was driven from the medial aspect of the base of the proximal phalanx into the head of the 1st metatarsal in order to serve as temporary fixation, next the cannulated screw was driven and provided excellent compression. Next A large steel plate was used to make sure that the hallux was in a rectus position both in the sagittal plane as well as the frontal plane. Excellent position of the hallux was noted. Next, a Maxforce plate was placed atop the 1st metatarsophalangeal joint held in position with [place] wires. Utilizing standard principles and techniques, the distal drill holes were drilled and three 3.0 mm mm fully-threaded locking screws were driven from dorsal to plantar holding the distal aspect of the plate intact. At this point, the Maxforce compression system was utilized from dorsal distal to proximal plantar across the 1st metatarsophalangeal joint with excellent compression noted. Next, a 3.0mm locking screw was used to further compress the joint along the oblong dynamic compression screw slot. Next, the remaining 2 prox
== END 2023-08-19 11:46 | disposition home or self-care (01) ==
PROVIDERS: PCP Family Medicine; Visit Provider Podiatrist Foot & Ankle Surgery
PROC: (CPT 28750; principal; 2023-08-19 08:30)
DX: M21.612 Bunion of left foot (principal); G89.18 Other acute postprocedural pain; Z85.3 Personal history of malignant neoplasm of breast
CPT/HCPCS: 28750; 64445; 64450; 99199; C1713; J0690; J1100; J2250; J2405; J2704; J3010; J7120

== ENCOUNTER 2023-11-02 10:28 | Outpatient (CLI) | payer BC, SELFPAY ==
--- NOTE | ~2023-11-02 | XR_ITS ---
Left Hand Technique: PA, oblique, and lateral views were obtained. Clinical History: Pain Findings: No acute fracture or dislocation is seen. Osseous alignment is anatomic. Joint spaces are p reserved. Soft tissues are unremarkable. Impression: Unremarkable left hand. Reviewed, dictated and finalized at location M. Impression: Unremarkable left hand.
== END 2023-11-02 10:29 ==
PROVIDERS: PCP Family Medicine; Visit Provider Family Medicine
DX: M79.642 Pain in left hand (principal)
CPT/HCPCS: 73130

== ENCOUNTER 2024-01-19 09:46 | Emergency (ER) | payer BC, SELFPAY ==
[2024-01-19 10:03] VITALS: BP 132/84; PULSE 73; RESP 16; TEMP 35.7; O2SAT 99
--- NOTE | 2024-01-19 10:10 | ED.URI ---
HPI - URI/Sore Throat General Chief Complaint: Upper Respiratory Infection Stated Complaint: SORE THROAT Time Seen by Provider: 01/19/24 10:25 Source: patient and RN notes reviewed Mode of arrival: ambulatory Limitations: no limitations History of Present Illness HPI Narrative: 68-year-old female presents with concern for sore throat, cough. Reports pain got worse last night. She reports right ear pain. She denies fever, body aches, chills, sweats. She denies headache, stomach ache. She reports she has been using throat lozenges. MD elicited complaint: cough and sore throat Related Data Home Medications Medication Instructions Recorded Confirmed acidophilus 100 million 1 cap PO HS 05/28/19 01/19/24 cell-pectin, citrus 10 mg capsule (Acidophilus Probiotic) ascorbic acid (vitamin C) 500 mg 1,500 mg PO DAILY 05/28/19 01/19/24 tablet budesonide 32 mcg/actuation nasal 2 spray intranasal DAILY 05/28/19 01/19/24 spray (Rhinocort Allergy) calcium carbonate (Calcium 600) 600 mg PO BID 05/28/19 01/19/24 cholecalciferol (vitamin D3) 125 5,000 unit PO DAILY 05/28/19 01/19/24 mcg (5,000 unit) tablet (Vitamin D3) loratadine 10 mg tablet (Claritin) 10 mg PO DAILY 05/28/19 01/19/24 vitamin B complex 1 tablet PO DAILY 05/28/19 01/19/24 magnesium 200 mg tablet 400 mg PO DAILY 08/12/23 01/19/24 Allergies Allergy/AdvReac Type Severity Reaction Status Date / Time sulfite Allergy Mild FLUSHING, Verified 01/19/24 10:09 BREATHING PROBLEMS cyclobenzaprine AdvReac Severe DRY EYES Verified 01/19/24 10:09 [From Flexeril] Beef Containing Products AdvReac Mild Gastrointestinal Verified 01/19/24 10:09 Upset monosodium glutamate AdvReac Mild FLUSHING, Verified 01/19/24 10:09 SOB Review of Systems Review of Systems: CONSTITUTIONAL: Denies malaise, chills, sweats, or fever. EYES: Denies visual changes, redness, or discharge. ENT: Denies rhinorrhea, congestion, sinus pain. Reports otalgia and sore throat. CARDIOVASCULAR: Denies chest pain, palpitations, or edema. RESPIRATORY: Reports cough. Denies dyspnea. GASTROINTESTINAL: Denies abdominal pain, nausea, vomiting, diarrhea SKIN: Denies rash or itching. MUSCULOSKELETAL: Denies myalgia. NEUROLOGIC: Denies headache. All systems reviewed & are unremarkable except as noted in HPI and below PMFSH Past Medical History Medical History Allergies Ankle fracture Asymptomatic menopausal state Breast cancer (~2010) Dizziness Fracture of surgical neck of left humerus Hyperlipidemia Left knee pain Osteopenia Pes anserinus bursitis of left knee Surgical History Surgical History H/O colonoscopy H/O esophagogastroduodenoscopy History of breast reconstruction History of carpal tunnel surgery (~2009) (B) wrists History of mastectomy (~2010) History of open reduction and internal fixation (ORIF) procedure (~05/2019) (L) ankle Hx of LASIK (~2001) Family History Family History Father Patient's father is Acute myocardial infarction Heart disease Mother Diabetes mellitus Hypertension Kidney disease Other Carcinoma of colon maternal aunt Grandparent Carcinoma of colon maternal grandmother Social History Social History (Updated 08/10/23 @ 10:19 by ELISA Echeverria) Smoking status: Never smoker Second hand tobacco smoke exposure: No Alcohol intake: current Drinks per week: 2 Alcohol use details: wine Substance use: never Substance use type: does not use Do You Feel Safe in your Home?: Yes Lack of Transportation: No Lack of Food: Never True Current Housing: I Have Housing Concerned About Future Housing: No Difficulty Paying Gas/Electric Bills: No Difficulty Paying for Meds: No 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
== END 2024-01-19 10:43 | disposition home or self-care (01) ==
PROVIDERS: Emergency Provider Nurse Practitioner
DX: J02.0 Streptococcal pharyngitis (principal); E78.5 Hyperlipidemia, unspecified; M85.80 Other specified disorders of bone density and structure, unspecified site; Z85.3 Personal history of malignant neoplasm of breast
CPT/HCPCS: 87880; 99213; G0463

== ENCOUNTER 2024-05-03 08:36 | Outpatient (CLI) | payer BC, SELFPAY ==
--- NOTE | ~2024-05-03 | MR_ITS ---
MRI of the lumbar spine Clinical History: Right foot pain Technique: Axial T2-weighted images, and sagittal T1-weighted, T2-weighted, and T2 fat-sat images wer e acquired. COMPARISON: Findings: Stable 5 mm retrolisthesis of L5 over S1. No fracture seen. Osseous alignment is unchanged. No suspicious bone marrow signal abnormality seen. At L1-L2 and L2-L3, there is no disc bulge or herniation. There is moderate facet hypertrophy at thes e levels. No spinal canal stenosis or definite neural foraminal narrowing at these levels. At L3-L4, there is no significant disc bulge or herniation. There is moderate facet hypertrophy. No s alireza canal stenosis or neural foraminal narrowing. At L4-L5, there is mild degenerative disc narrowing with minimal disc bulge. There is moderate facet hypertrophy. No spinal canal stenosis or neural foraminal narrowing. At L5-S1, there is advanced degenerative disc narrowing. There is diffuse disc bulge with superimpose d small central disc protrusion extending superiorly. There is mild effacement of the ventral thecal sac. There is moderate bilateral neural foraminal narrowing. Paravertebral soft tissues are unremarkable. Impression: Small central disc protrusion at L5-S1 extending superiorly, with mild effacement of the ventral thec al sac. Moderate bilateral neural foraminal narrowing at this level. Additional mild degenerative changes, as above. Stable 5 mm retrolisthesis of L5 over S1. Reviewed, dictated and finalized at [facility]. Impression: Small central disc protrusion at L5-S1 extending superiorly, with mild effaceme nt of the ventral thecal sac. Moderate bilateral neural foraminal narrowing at this level. Additional mild degenerative changes, as above. Stable 5 mm retrolisthesis of L5 over S1.
== END 2024-05-03 08:37 | disposition home or self-care (01) ==
LOC: ANHIMG 08:40
PROVIDERS: PCP Nurse Practitioner Family; Referring Provider Pain Medicine Pain Medicine; Visit Provider Nurse Practitioner Family
DX: M79.671 Pain in right foot (principal); R20.0 Anesthesia of skin; R20.2 Paresthesia of skin; M51.27 Other intervertebral disc displacement, lumbosacral region; M51.369 Other intervertebral disc degeneration, lumbar region without mention of lumbar back pain or lower extremity pain
CPT/HCPCS: 72148

== ENCOUNTER 2024-08-22 12:53 | Outpatient (CLI) | payer BC, SELFPAY ==
--- NOTE | ~2024-08-22 | US_ITS ---
US breast LT limited 08/22/2024 13:38 Indication: No history of breast cancer. Status post bilateral mastectomy. Silicone implants. Procedure: High-resolution Limited left breast ultrasound Comparison: No prior studies for comparison. Findings: In the axilla there is a normal-appearing lymph node with fatty hilum and no cortical thick ening. The left breast at 2:00, 9 cm from the nipple there is an oval hypoechoic mass with area of in creased echogenicity peripherally measuring 8 x 6 x 4 mm. There is marginal vascularity. No significa nt posterior features. Near the nipple area there is a slightly irregular shaped hypoechoic mass with internal echogenicity, possibly representing a lymph node measuring 7 mm. No internal vascularity or significant posterior features. Impression: 1: Left breast masses which are indeterminate including a millimeter mass at 2:00, 9 cm from the nipp le and 7 mm mass near the nipple. Recommendation: Recommend correlation with MRI of the breasts with contrast. BI-RADS CATEGORY 0 - INCOMPLETE STUDY, NEED ADDITIONAL IMAGING EVALUATION. Reviewed, dictated and finalized at location B. ER SWEEP Impression: 1: Left breast masses which are indeterminate including a millimeter mass at 2: 00, 9 cm from the nipple and 7 mm mass near the nipple. Recommendation: Recommend correlation with MRI of the breasts with contrast. BI-RADS CATEGORY 0 - INCOMPLETE STUDY, NEED ADDITIONAL IMAGING EVALUATION.
--- OUTSIDE RECORDS SUMMARY | 2024-08-22 13:51 | XMS_ITS | Encounter Summary ---
Author Organization [facility] Address [address] [place] [address] Care Team Providers Care Aircraft Lay Out Worker Name Role Phone Unavailable Primary Care Provider Unavailabl e Encounter Details Date Type Department Care Team (Late st Contact Info) Description 03/22/2018 Lab Requisition [facility] Care DermPath Lab [address] [facility], [place] [phone] Nikia Dawn MD [address] [facility] [address] [place] [address] Social History Tobacco Use Types Packs/Day Years Used Date Smoking Tobacco: Never Assessed Sex and Gender Information Value Date Recorded Sex Assigned at Not on file Gender Identity Not on file Sexual Orientation Not on file documented as of this encounter Plan of Treatment Not on file documented as of this encounter Procedures Procedure Name Priority Date/Time Associated Diagnosis Comments DERMATOPATH TECHNICAL REPORT Routine 03/21/2018 12:00 AM CDT documented in this encounter Results * DERMATOPATH TECHNICAL REPORT (03/21/2018 12:00 AM CDT) Case Report Dermatopathology Report Case: [id number] Authorizing Provider: Nikia Dawn MD Collected: 03/21/2018 12:00 AM Pathologist: Melva Delaney MD Received: 03/22/2018 06:20 AM Specimen: Skin, left post thigh 8 2:09 PM CDT DERMATOPATHOLOGY LABORATORY Addendum 1 At the request of the diagnosing physician, the technical component for MART-1/Melan A was performed by [facility] Dermatopathology Laboratory. 8 2:09 PM CDT DERMATOPATHOLOGY LABORATORY Addendum electronically signed by Melva Delaney MD on 03/24/2018 at 2:09 PM Clinical History R/O nevus, irregular color. Check margins. 8 2:09 PM CDT DERMATOPATHOLOGY LABORATORY Gross Description Specimen A: Received is one formalin filled container labeled with the patient's name and designated left post thigh. The specimen consists of a shave measuring [id number]. The margin is inked green. Jar 0. [facility] Dermatopathology Laboratory performed the technical component only. 8 2:09 PM CDT DERMATOPATHOLOGY LABORATORY Embedded Images 8 2:09 PM CDT DERMATOPATHOLOGY LABORATORY DISCLAIMER An external and internal positive and negative controls are appropriate for the histochemical, immunohistochemical and immunofluorescence stain(s) in this case (if any), except where stated explicitly. The performance characteristics of the stain(s) cited in this report were developed and its performance characteristic determined by the Dermatopathology Laboratory at [facility]. These tests need not be, and therefore are not, approved by the [place] Food and Drug Administration. The tests are used for clinical purposes. 8 2:09 PM T DERMATOPATHOLOGY LABORATORY Pathology/Cytolog y TISSUE SPECIMEN FROM SKIN / Unknown 03/21/2018 03/22/2018 6:20 AM CDT Nikia Dawn MD LAB - PATHOLOGY/CYT OLOGY ORDERABLES DERMATOPATHOLOGY LABORATORY [facility] - Department of Dermatology [address] [place] [address], 5th Floor Lab [address] [phone] documented in this encounter Visit Diagnoses Not on filedocumented in this encounter
--- OUTSIDE RECORDS SUMMARY | 2024-08-22 13:51 | XMS_ITS | Encounter Summary ---
Author Organization [facility] Address [address] [place] [address] Care Team Providers Care Floor Sweeper Name Role Phone Unavailable Primary Care Provider Unavailabl e Encounter Details Date Type Department Care Team (Late st Contact Info) Description 04/20/2018 Lab Requisition [facility] Care DermPath Lab [address] [facility], [place] [phone] Nikia Danw MD [address] [facility] [address] [place] [address] Social History Tobacco Use Types Packs/Day Years [...] Associated Diagnosis Comments DERMATOPATH TECHNICAL REPORT Routine 04/18/2018 12:00 AM CDT documented in this encounter Results * DERMATOPATH TECHNICAL REPORT (04/18/2018 12:00 AM CDT) Case Report Dermatopathology Report Case: [id number] Authorizing Provider: Nikia Dawn MD Collected: 04/18/2018 12:00 AM Pathologist: Anne Simon MD Received: 04/20/2018 06:38 AM Specimen: Skin, left inner thigh 12:53 PM CDT DERMATOPATHOLOGY LABORATORY Clinical History R/O dermatofibroma vs drug eruption vs other. Check margins. 12:53 PM CDT DERMATOPATHOLOGY LABORATORY Gross Description Specimen A: Received is one formalin filled container labeled with the patient's name and designated left inner thigh. The specimen consists of a punch measuring [id number]. The margin is inked green. The specimen is bisected and submitted in 1 cassette. Jar 0. [facility] Dermatopathology Laboratory performed the technical component only. 12:53 PM CDT DERMATOPATHOLOGY LABORATORY Embedded Images 12:53 PM CDT DERMATOPATHOLOGY LABORATORY DISCLAIMER An external and internal positive and negative controls are appropriate for the histochemical, immunohistochemical and immunofluorescence stain(s) in this case (if any), except where stated explicitly. The performance characteristics of the stain(s) cited in this report were developed and its performance characteristic determined by the Dermatopathology Laboratory at [facility]. These tests need not be, and therefore are not, approved by the [place] Food and Drug Administration. The tests are used for clinical purposes. 12:53 PM CDT DERMATOPATHOLOGY LABORATORY Pathology/Cytolog y TISSUE SPECIMEN FROM SKIN / Unknown 04/18/2018 04/20/2018 6:38 AM CDT Nikia Dawn MD LAB - PATHOLOGY/CYT OLOGY ORDERABLES DERMATOPATHOLOGY LABORATORY [facility] - Department of Dermatology [address] [facility], 5th Floor Lab [address] [phone] documented in this encounter Visit Diagnoses Not on filedocumented in this encounter
--- OUTSIDE RECORDS SUMMARY | 2024-08-22 13:51 | XMS_ITS | Encounter Summary ---
Author Organization [facility] Address [address] [place] [address] Care Team Providers Care Bottom Sprayer Name Role Phone Unavailable Primary Care Provider Unavailabl e Encounter Details Date Type Department Care Team (Late st Contact Info) Description 05/12/2018 Lab Requisition [facility] Care DermPath Lab [address] [facility], [place] [phone] Nikia Dawn MD [address] [facility] [address] [place] [address] Social History Tobacco Use Types Packs/Day Years [...] Associated Diagnosis Comments DERMATOPATH TECHNICAL REPORT Routine 05/12/2018 12:00 AM CDT documented in this encounter Results * DERMATOPATH TECHNICAL REPORT (05/12/2018 12:00 AM CDT) Case Report Dermatopathology Report Case: [id number] Authorizing Provider: Nikia Dawn MD Collected: 05/12/2018 12:00 AM Pathologist: Melva Delaney MD Received: 05/12/2018 01:22 PM Specimen: Skin, left post thigh 3:39 PM CDT DERMATOPATHOLOGY LABORATORY Clinical History Bx proven melanocytic proliferation. Bx proven. Check margins. 3:39 PM CDT DERMATOPATHOLOGY LABORATORY Gross Description Specimen A: Received is one formalin filled container labeled with the patient's name and designated left post thigh. The specimen consists of a non-oriented ellipse of skin measuring [id number]. The epidermal surface consists of a centrally located 8x6mm previous biopsy site. The margin is inked green. The 12 o'clock and 6 o'clock tips are submitted in cassette 1. The remainder of the ellipse is serially sectioned and submitted in cassettes 2-3. Jar 0. [facility] Dermatopathology Laboratory performed the technical component only. 3:39 PM CDT DERMATOPATHOLOGY LABORATORY Embedded Images 3:39 PM CDT DERMATOPATHOLOGY LABORATORY DISCLAIMER An external and internal positive and negative controls are appropriate for the histochemical, immunohistochemical and immunofluorescence stain(s) in this case (if any), except where stated explicitly. The performance characteristics of the stain(s) cited in this report were developed and its performance characteristic determined by the Dermatopathology Laboratory at [facility]. These tests need not be, and therefore are not, approved by the [place] Food and Drug Administration. The tests are used for clinical purposes. 3:39 PM CDT DERMATOPATHOLOGY LABORATORY Pathology/Cytolog y TISSUE SPECIMEN FROM SKIN / Unknown 05/12/2018 05/12/2018 1:22 PM CDT Nikia Dawn MD LAB - PATHOLOGY/CYT OLOGY ORDERABLES DERMATOPATHOLOGY LABORATORY [facility] - Department of Dermatology [facility] [facility], 5th [place] [address], [facility] [phone] documented in this encounter Visit Diagnoses Not on filedocumented in this encounter
--- OUTSIDE RECORDS SUMMARY | 2024-08-22 13:51 | XMS_ITS | Patient Health Summary ---
Author Organization [facility] Address [address] [facility] [place] [address] Care Team Providers Care Data Systems Analyst Name Role Phone Unavailable Primary Care Provider Unavailabl e Note from [facility],non-owned Affiliates and Associated Physician Practices is amultiple site organization consisting of ambulatory clinics and hospital sitesin [place], [place], [place] and [place]. This disclosure is being madepursuant to the Care Everywhere program and may not contain all information available regarding this patient. Last updated 18.[facility] [employer] Social History Tobacco Use Types Packs/Day Years Used Date Smoking Tobacco: Never Assessed Sex and Gender Information Value Date Recorded Sex Assigned at Not on file Gender Identity Not on file Sexual Orientation Not on file Procedures * DERMATOPATH TECHNICAL REPORT(Performed 05/12/2018) * DERMATOPATH TECHNICAL REPORT(Performed 04/18/2018) * DERMATOPATH TECHNICAL REPORT(Performed 03/21/2018) Results * DERMATOPATH TECHNICAL REPORT (05/12/2018 12:00 AM CDT) Only the most recent of3 resultswithin the time period is included. Case Report Dermatopathology Report Case: [id number] Authorizing Provider: Nikia Dawn MD Collected: 05/12/2018 [...] of a non-oriented ellipse of skin measuring [id number]. The epidermal surface consists of a centrally located 8x6mm previous biopsy site. The margin is inked green. The 12 o'clock and 6 o'clock tips are submitted in cassette 1. The remainder of the ellipse is serially sectioned and submitted in cassettes 2-3. Jar 0. [facility] Dermatopathology Laboratory performed the technical component only. [...] characteristic determined by the Dermatopathology Laboratory at [facility]. These tests need not be, and therefore are not, approved by the [place] Food and Drug Administration. The tests are used for clinical purposes. 3:39 PM CDT DERMATOPATHOLOGY LABORATORY Pathology/Cytolog y TISSUE SPECIMEN FROM SKIN / Unknown 05/12/2018 05/12/2018 1:22 PM CDT Nikia Dawn MD LAB - PATHOLOGY/CYT OLOGY ORDERABLES DERMATOPATHOLOGY LABORATORY [facility] - Department of Dermatology [facility] [facility], 5th [place] [address], [facility] [phone]
--- OUTSIDE RECORDS SUMMARY | 2024-08-22 13:51 | XMS_ITS | Referral Summary ---
Author Organization [facility] Address [address] [facility] [place] [address] Care Team Providers Care Impregnating Tank Operator Name Role Phone Unavailable Primary Care Provider Unavailabl e Source Comments [facility],non-owned Affiliates and Associated Physician Practices is amultiple site organization consisting of ambulatory clinics and hospital sitesin [place], [place], [place] and [place]. This disclosure is being madepursuant to the Care Everywhere program and may not contain all information available regarding this patient. Last updated 18.[facility] [employer] Social History Tobacco Use Types Packs/Day Years Used Date Smoking Tobacco: Never Assessed Sex and Gender Information Value Date Recorded Sex Assigned at Not on file Gender Identity Not on file Sexual Orientation Not on file Plan of Treatment Not on file
--- OUTSIDE RECORDS SUMMARY | 2024-08-22 13:51 | XMS_ITS | Data Portability ---
Author Organization [facility] Adaptive Planning, Main Office Address [address] [place] [address] Care Team Providers Care Information Developer Name Role Phone KARUNA JACOBSON Primary Care Provider KARUNA JACOBSON Referring Provider [phone] Assessment No assessment recorded. Plan of Treatment Reminders Order Date Submit Date Provider Last Modified By Organization Details Last Modified Time Details Appointments None recorded. Lab None recorded. Referral None recorded. Procedures None recorded. Surgeries None recorded. Imaging XR, hand 2023 024 [email or web address] Not available 13:45:45 Medication Orders diazepam 2 mg tablet 2023 024 [id number], [address], [place], [place], [id number], 12:34:54 Patient TargetsNo targets recorded. Patient InstructionsNo instructions recorded. Reason for Referral None Reported. Results Created Date Observation Date Name Description Value Unit Range Abnormal Flag Note LastModifiedBy Organization Detail LastModifiedTime 10/08/1910/07/2022 rapid strep group A, throa t STREP A negati ve Not Available [facility] [address], [place], [address], 10/07/2022 08:39:36 07/14/20 23 07/15/2023 CBC/D IFF AMBIG UOUS DEFAU LT WBC 5.2 x10e3 /uL 3.4-10 .8 Not Available [facility] ([facility]) [address] [facility], [place], [address], 07/15/2023 08:21:25 07/14/20 23 07/15/2023 CBC/D IFF AMBIG UOUS DEFAU LT RBC 4.76 x10e6 /uL 3.77-5 .28 Not Available [facility] ([facility]) [address] [facility], [place], [address], 07/15/2023 08:21:25 07/14/20 23 07/15/2023 CBC/D IFF AMBIG UOUS DEFAU LT hemoglobin 15.2 g/dL 11.1-1 5.9 Not Available [facility] ([facility]) [address] [facility], [place], [address], 07/15/2023 08:21:25 07/14/20 23 07/15/2023 CBC/D IFF AMBIG UOUS DEFAU LT hematocrit 44.7 % 34.0-4 6.6 Not Available [facility] ([facility]) [address] [facility], [place], [address], 07/15/2023 08:21:25 07/14/20 23 07/15/2023 CBC/D IFF AMBIG UOUS DEFAU LT MCV 94 fL 79-97 Not Available [facility] ([facility]) [address] [place], [address], 07/15/2023 08:21:25 07/14/20 23 07/15/2023 CBC/D IFF AMBIG UOUS DEFAU LT MCH 31.9 pg 26.6-3 3.0 Not Available [facility] ([facility]) [address] [place], [address], 07/15/2023 08:21:25 07/14/20 23 07/15/2023 CBC/D IFF AMBIG UOUS DEFAU LT MCHC 34.0 g/dL 31.5-3 5.7 Not Available [facility] ([facility]) [address] [place], [address], 07/15/2023 08:21:25 07/14/20 23 07/15/2023 CBC/D IFF AMBIG UOUS DEFAU LT RDW 11.8 % 11.7-1 5.4 Not Available [facility] ([facility]) [address] [facility], [place], [address], 07/15/2023 08:21:25 07/14/20 23 07/15/2023 CBC/D IFF AMBIG UOUS DEFAU LT platelets 277 x10e3 /uL 150-45 0 Not Available [facility] ([facility]) [address] [facility], [place], [address], 07/15/2023 08:21:25 07/14/20 23 07/15/2023 CBC/D IFF AMBIG UOUS DEFAU LT neutrophils 59 % not estab. Not Available [facility] ([facility]) [address] [facility], [place], [address], 07/15/2023 08:21:25 07/14/20 23 07/15/2023 CBC/D IFF AMBIG UOUS DEFAU LT lymphs 33 % not estab. Not Available [facility] ([facility]) [address] [facility], [place], [address], 07/15/2023 08:21:25 07/14/20 23 07/15/2023 CBC/D IFF AMBIG UOUS DEFAU LT monocytes 6 % not estab. Not Available [facility] ([facility]) [address] [facility], [place], [address], 07/15/2023 08:21:25 07/14/20 23 07/15/2023 CBC/D IFF AMBIG UOUS DEFAU LT eos 2 % not estab. Not Available [facility] ([facility]) [address] [facility], [place], [address], 07/15/2023 08:21:25 07/14/20 23 07/15/2023 CBC/D IFF AMBIG UOUS DEFAU LT basos 0 % not estab. Not Available [facility] ([facility]) [address] [facility], [place], [address], 07/15/2023 08:21:25 07/14/20 23 07/15/2023 CBC/D IFF AMBIG UOUS DEFAU LT immature cells DIETETICS PROFESSOR Not Available [facility]) [address] [facility], [place], [address], 07/15/2023 08:21:25 07/14/20 23 07/15/2023 CBC/D IFF AMBIG UOUS DEFAU LT neutrophils (absolute) 3.1 x10e3 /uL 1.4-7. 0 Not Available [facility] ([facility]) [address] [facility], [place], [address], 07/15/2023 08:21:25 07/14/20 23 07/15/2023 CBC/D IFF AMBIG UOUS DEFAU LT lymphs (absolute) 1.7 x10e3 /uL 0.7-3. 1 Not Available [facility] ([facility]) [address] [place], [address], 07/15/2023 08:21:25 07/14/20 23 07/15/2023 CBC/D IFF AMBIG UOUS DEFAU LT monocytes(ab solute) 0.3 x10e3 /uL 0.1-0. 9 Not Available [facility] ([facility]) [address] [facility], [place], [address], 07/15/2023 08:21:25 07/14/20 23 07/15/2023 CBC/D IFF AMBIG UOUS DEFAU LT eos (absolute) 0.1 x10e3 /uL 0.0-0. 4 Not Available [facility] ([facility]) [address] [place], [address], 07/15/2023 08:21:25 07/14/20 23 07/15/2023 CBC/D IFF AMBIG UOUS DEFAU LT baso (absolute) 0.0 x10e3 /uL 0.0-0. 2 Not Available [facility] ([facility]) [address] [facility], [place], [address], 07/15/2023 08:21:25 07/14/20 23 07/15/2023 CBC/D IFF AMBIG UOUS DEFAU LT immature granulocytes 0 % not estab. Not Available [facility] ([facility]) [address] [facility], [place], [address], 07/15/2023 08:21:25 07/14/20 23 07/15/2023 CBC/D IFF AMBIG UOUS DEFAU LT immature grans (abs) 0.0 x10e3 /uL 0.0-0. 1 Not Available [facility] ([facility]) [address] [facility], [place], [address], 07/15/2023 08:21:25 07/14/20 23 07/15/2023 CBC/D IFF AMBIG UOUS DEFAU LT NRBC DIETETICS PROFESSOR Not Available [facility] ([facility]) [address] [place], [address], 07/15/2023 08:21:25 07/14/20 23 07/15/2023 CBC/D IFF AMBIG UOUS DEFAU LT hematology comments: DIETETICS PROFESSOR A hand- writt en panel /prof pranav was recei andi from your offic e. In accor dance with the [facility] Ambig uous Test Code Polic y dated January 2003, we have assig daniel CBC with Richard maher/Raymond funk, Test Code #[address]. If this is not the testi ng you wishe d to recei ve on this speci men, pleas e conta ct the [facility] Lian t Inqui ry/ Techn ical Servi avi Depar tment to marichuy fy the test order . We appre ciate your busin ess. Not Available [facility] ([facility]) [address] [facility], [place], [address], 07/15/2023 08:21:25 07/14/2007/15/2023 BASIC METAB OLIC PANEL (8) glucose 101 mg/dL 70-99 above high normal Not Available [facility] ([facility]) [address] [facility] [place], [address], 07/15/2023 08:21:26 07/14/20 23 07/15/2023 BASIC METAB OLIC PANEL (8) BUN 14 mg/dL 8-27 Not Available [facility] ([facility]) [address] [place] [place], [address], 07/15/2023 08:21:26 07/14/20 23 07/15/2023 BASIC METAB OLIC PANEL (8) creatinine 0.74 mg/dL 0.57-1 .00 Not Available [facility] ([facility]) [address] [facility], [place], [address], 07/15/2023 08:21:26 07/14/20 23 07/15/2023 BASIC METAB OLIC PANEL (8) eGFR 88 mL/mi n/1.7 3 >59 Not Available [facility] ([facility]) [address] [facility] [place], [address], 07/15/2023 08:21:26 07/14/2007/15/2023 BASIC METAB OLIC PANEL (8) BUN/creatini ne ratio 19 - Not Available [facility] ([facility]) [address] [place], [address], 07/15/2023 08:21:26 07/14/20 23 07/15/2023 BASIC METAB OLIC PANEL (8) sodium 142 mmol/ L 134-14 4 Not Available [facility] ([facility]) [address] [place], [address], 07/15/2023 08:21:26 07/14/20 23 07/15/2023 BASIC METAB OLIC PANEL (8) potassium 4.6 mmol/ L 3.5-5. 2 Not Available [facility] ([facility]) [address] [place], [address], 07/15/2023 08:21:26 07/14/20 23 07/15/2023 BASIC METAB OLIC PANEL (8) chloride 106 mmol/ L 96-106 Not Available [facility] ([facility]) [address] [place], [address], 07/15/2023 08:21:26 07/14/20 23 07/15/2023 BASIC METAB OLIC PANEL (8) carbon dioxide, total 23 mmol/ L 20-29 Not Available [facility] ([facility]) [address] [place], [address], 07/15/2023 08:21:26 07/14/20 23 07/15/2023 BASIC METAB OLIC PANEL (8) calcium 10.0 mg/dL 8.7-10 .3 Not Available [facility] ([facility]) [address] [place], [address], 07/15/2023 08:21:26 07/14/20 23 07/15/2023 LIPID PANEL cholesterol, total 257 mg/dL 100-19 9 above high normal Not Available [facility] ([facility]) [address] [place], [address], 07/15/2023 08:21:27 07/14/20 23 07/15/2023 LIPID PANEL triglyceride s 75 mg/dL 0-149 Not Available [facility]) [address] [place], [address], 07/15/2023 08:21:27 07/14/20 23 07/15/2023 LIPID PANEL HDL cholesterol 80 mg/dL >39 Not Available [facility] [address] [place], [address], 07/15/2023 08:21:27 07/14/20 23 07/15/2023 LIPID PANEL VLDL cholesterol eddie 12 mg/dL 5-40 Not Available [facility]) [address] [facility], [place], [address], 07/15/2023 08:21:27 07/14/20 23 07/15/2023 LIPID PANEL LDL chol calc ([facility]) 165 mg/dL 0-99 above high normal Not Available [facility] ([facility]) [address] [facility], [place], [address], 07/15/2023 08:21:27 07/14/20 23 07/15/2023 LIPID PANEL comment: DIETETICS PROFESSOR Not Available [facility] ([facility]) [address] [facility], [place], [address], 07/15/2023 08:21:27 07/14/20 23 07/15/2023 HEPAT IC FUNCT ION PANEL (7) protein, total 6.7 g/dL 6.0-8. 5 Not Available [facility] ([facility]) [address] [facility], [place], [address], 07/15/2023 08:21:28 07/14/20 23 07/15/2023 HEPAT IC FUNCT ION PANEL (7) albumin 4.5 g/dL 3.9-4. 9 Not Available [facility] ([facility]) [address] [place], [address], 07/15/2023 08:21:28 07/14/20 23 07/15/2023 HEPAT IC FUNCT ION PANEL (7) bilirubin, total 0.4 mg/dL 0.0-1. 2 Not Available [facility] ([facility]) [address] [place], [address], 07/15/2023 08:21:28 07/14/20 23 07/15/2023 HEPAT IC FUNCT ION PANEL (7) bilirubin, direct 0.14 mg/dL 0.00-0 .40 Not Available [facility] ([facility]) [address] [facility], [place], [address], 07/15/2023 08:21:28 07/14/20 23 07/15/2023 HEPAT IC FUNCT ION PANEL (7) alkaline phosphatase 61 IU/L 44-121 Not Available [facility] [address] [facility], [place], [address], 07/15/2023 08:21:28 07/14/20 23 07/15/2023 HEPAT IC FUNCT ION PANEL (7) AST (SGOT) 17 IU/L 0-40 Not Available [facility] ([facility]) [address] [facility], [place], [address], 07/15/2023 08:21:28 07/14/20 23 07/15/2023 HEPAT IC FUNCT ION PANEL (7) ALT (SGPT) 19 IU/L 0-32 Not Available [facility] ([facility]) [address] [place], [address], 07/15/2023 08:21:28 07/14/20 23 07/15/2023 VITAM IN D, 25-HY DROXY vitamin D, 25-hydroxy 34.2 NG/mL 30.0-1 00.0 Vitam in D defic iency has been defin ed by the Insti tute of Medic ine and an Endoc rine Socie ty pract ice guide line as a level of serum 25-OH vitam in D less than 20 ng/mL (1,2) . The Endoc rine Socie ty went on to furth er defin e vitam in D insuf ficie ncy as a level betwe en 21 and 29 ng/mL (2). 1. IOM (Inst itute of Medic ine). 2010. Dieta ry refer ence intdestinee es for calci um and D. Yesi church [place]: [facility] . 2. Santy streeter [place], Tristan mcgee [place], Bear off-F errjeff i MACARIO, et al. Evalu ation , treat ment, and preve ntion of vitam in D defic iency : an Endoc rine Socie ty clini eddie pract ice guide line. JCEM. 2010; 96(7) :1911 -30. Not Available [facility] ([facility]) [address] [facility], [place], [address], 07/15/2023 08:21:29 07/14/20 23 07/14/2023 AMBIG ABBRE V BMP8 DEFAU LT ambig abbrev BMP8 default COMMEN T A hand- writt en panel /prof ile was recei andi from your offic e. In accor dance with the [facility] Ambig uous Test Code Polic y dated January 2003, we have compl eted your order by using the close st curre ntly or forme rly recog nized AMA panel . We have assalea sanchez Basic Metab olic Panel (8), Test Code #3227 [address]. If this is not the testi ng you wishe d to recei ve on this speci men, pleas e conta ct the [facility] Clien t Inqui ry/Te chnic al Servi avi Depar tment to marichuy fy the test order . We appre ciate your busin ess. Not Available [facility] ([facility]) [address] [facility], [place], [address], 07/15/2023 08:21:30 07/14/20 23 07/14/2023 AMBIG ABBRE V LP DEFAU LT ambig abbrev LP default COMMEN T A hand- writt en panel /prof ile was recei andi from your offic e. In accor dance with the [facility] Ambig uous Test Code Polic y dated January 2003, we have compl eted your order by using the close st curre ntly or forme rly recog nized AMA panel . We have yo sanchez Lipid Panel , Test Code #3037 [address]. If this is not the testi ng you wishe d to recei ve on this speci men, pleas e conta ct the [facility] Clien t Inqui ry/Te chnic al Servi avi Depar tment to marichuy fy the test order . We appre ciate your busin ess. Not Available [facility] ([facility]) [address] [facility], [place], [address], 07/15/2023 08:21:30 07/14/20 23 07/14/2023 AMBIG ABBRE V HFP7 DEFAU LT ambig abbrev hfp7 default COMMEN T A hand- writt en panel /prof ile was recei andi from your offic e. In accor dance with the [facility] Gertrude smith Test Code Polic y dated January 2003, we have compl eted your order by using the close st curre ntly or forme rly recog nized AMA panel . We have assalea sanchez Hepat ic Funct ion Panel (7), Test Code #3227 [address]. If this is not the testi ng you wishe d to recei ve on this speci men, pleas e conta ct the [facility] Clien t Inqui ry/Te chnic al Servi avi Depar tment to marichuy fy the test order . We appre ciate your busin ess. Not Available [facility] ([facility]) [address] [facility], [place], [address], 07/15/2023 08:21:31 09/17/19 23 09/16/2022 US, abdom en No observ ation record ed. [email or web address] [address] [facility], [place], [address], 09/20/2022 09:08:58 11/10/19 23 11/05/2022 DEXA No observ ation record ed. [email or web address] [address], [place], [address], 11/10/2022 16:59:47 11/19/19 23 11/18/2022 MRI, knee, w/o contr ast No observ ation record ed. [email or web address] [facility] [address], [place], [address], 11/18/2022 11:58:51 08/19/19 24 08/19/2023 XR, foot No observ ation record ed. [email or web address] [facility] [address], [place], [address], 08/31/2023 14:08:44 11/02/19 24 11/02/2023 XR, hand No observ ation record ed. [email or web address] [facility] [address], [place], [address], 11/21/2023 17:46:27 Result Notes None recorded. Problems Name Problem SNOMED Code Status Onset Date Resolution Date Notes Provider Name and Address Organization Details Recorded Time Painful mouth 700933646 Active Not Available [facility] 3 16:40:34 Serous otitis media of right ear 607320989504 9104 Active Not Available [facility] 3 16:40:34 Abdominal bloating 878351143 Active Not Available [facility] 3 16:40:34 Acute sinusitis 47067415 Active Not Available [facility] 3 16:40:34 Pain in throat 261199433 Active Not Available [facility] 3 16:40:34 Chronic interstit ial cystitis 386478171 Active Not Available [facility] 3 16:40:34 Abdominal pain 30045388 Active Not Available [facility] 3 16:40:34 Gastroeso phageal reflux disease 347640489 Active Not Available [facility] 3 16:40:34 Snake bite Active Not Available [facility] 3 16:40:34 Tight chest 67908941 Active Not Available [facility] 3 16:40:34 Dyspnea 079683471 Active Not Available [facility] 3 16:40:34 Malignant neoplasm of female breast 613231594 Active 2010, surgery at [facility] Not Available [facility] 3 16:40:34 Seasonal allergy 401294375 Active Not Available [facility] 3 16:40:34 Anxiety 24771413 Active Not Available [facility] 3 16:40:35 Dysuria 09064108 Active Not Available [facility] 3 16:40:35 Hyperlipi demia 90925578 Active Not Available [facility] 3 16:40:35 Otitis media 12432824 Active Not Available [facility] 3 16:40:35 Vitamin D deficienc y 26054227 Active 2022 Karuna Jacobson MD [address], [address], [place], [address] , [employer] 3 07:48:39 Dog bite - wound 066990539 Active 2022 Karuna Jacobson MD [address], [address], [place], [address] , [employer] 3 14:04:33 Osteopeni a 494674555 Active 2023 Karuna Jacobson MD [address], [place], [address] , [employer] 4 12:11:31 Allergic rhinitis 62153673 Active 2023 Karuna Jacobson MD [address], [place], [address] , [employer] 4 12:18:34 Acute situation al disturban ce 547306598 Active 2023 Karuna Jacobson MD [address], [place], [address] , [employer] 4 12:20:20 Pain of left hand 377786538287 103 Active 2023 Karuna Jacobson MD [address], [address], [place], [address] , [employer] [facility] 4 12:23:34 Candidias is of mouth 68109418 Active 2023 Karuna Jacobson MD [address], [place], [address] , [employer] 4 13:45:41 Problem Notes None recorded. Procedures Surgical History Date Name Laterality Status Provider Name and Address Organization Details Recorded Time 07/16 esophagogastroduodenoscopy completed Ana Jacobson MD [address], [place], [address] , [employer] 4 12:00:06 07/16 colonoscopy completed Karuna Jacobson MD [address], [place], [address] , [employer] 4 12:00:23 03/30 Date of Last Pap Smear completed Not Available [facility] 3 16:39:27 07/18 Orthopedic Surgery completed Not Available [facility] 3 16:39:27 07/18 Eye Surgery completed Not Available [facility] 3 16:39:27 Breast Surgery completed Not Available [facility] 3 16:39:27 Breast Surgery completed Not Available [facility] 3 16:39:27 Orthopedic Surgery completed Not Available [facility] 3 16:39:27 Imaging Results Imaging Date Name Status LastModified by Organiz ation Details LastModified Time 09/16/2022 US, abdomen completed [email or web address] [facility] [address], [place], [address], 09/20/2022 09:08:58 11/05/2022 DEXA completed [email or web address] [facility] [address], [place], [address], 11/10/2022 16:59:47 11/18/2022 MRI, knee, w/o contrast completed [email or web address] [facility] [address], [place], [address], 11/18/2022 11:58:51 08/19/2023 XR, foot [facility] [address], [place], [address], 08/31/2023 14:08:44 11/02/2023 XR, hand completed [email or web address] [facility] [address], [place], [address], 11/21/2023 17:46:27 Procedure Notes None recorded. Medical Equipment None Reported. Allergies Allergen ID Allergen Name Allergen Category Reaction Reaction Severity Criticality Documentation Date Start Date Code Code System Note Provider Name and Address Organization Details Recorded Time 86759 sulfite environme nt,medica tion flushing Not available Not available 09/15/2022 79636 UNK Not Available [facility] 3 16:41:20 46792 cyclobenz aprine hydrochlo ride medicatio n Not available Not available Not available 09/15/2022 56981 RxNorm sever e dry eyes Not Available [facility] 3 16:41:20 Medications Name Sig Start Date Stop Date Status Note LastModified by Organization Details LastModified Time montelukast 5 mg chewable tablet PLANER MILL GRADER 2 TABLETS PO D 08/14 completed Not Available Not Available Not Available clotrimazol e 10 mg clarice DISSOLVE 1 LOZENGE BY MOUTH FIVE TIMES DAILY FOR 14 DAYS active Not Available Not Available No t Available buspirone 5 mg tablet Take 1 tablet twice a day by oral route as needed. active Not Available Not Available No t Available neomycin-po lymyxin-hyd rocort 3.5 mg/mL-10,00 0 unit/mL-1 % ear solution INSTILL 4 DROPS INTO AFFECTED EAR(S) BY OTIC ROUTE 3 TIMES PER DAY WHILE AWAKE X 7 DAYS active Not Available Not Available No t Available nystatin 100,000 unit/mL oral suspension SWISH AND SWALLOW 10 ML BY MOUTH FOUR TIMES DAILY FOR 7 DAYS active Not Available Not Available No t Available azithromyci n 250 mg tablet active Not Available Not Available Not Available ofloxacin 0.3 % eye drops 07/26 completed Not Available Not Available Not Available fluconazole 150 mg tablet Take 1 tablet every day by oral route. 04/30 completed Not Available Not Available Not Available amoxicillin 250 mg-potassiu m clavulanate 62.5 mg/5 mL oral suspension SHAKE LIQUID AND TAKE 10 ML BY MOUTH EVERY 12 HOURS FOR 7 DAYS. DISCARD REMAINDER 10/25 completed Not Available Not Available Not Available hydrocodone 5 mg-acetamin ophen 325 mg tablet TAKE 1 TABLET BY MOUTH EVERY 8 HOURS NEEDED 09/02 completed Not Available Not Available Not Available hydroquinon e 4 % topical cream active Not Available Not Available Not Available prednisone 20 mg tablet Take 2 tablets every day by oral route for 5 days. active Not Available Not Available No t Available hydroxyzine pamoate 50 mg capsule TK 1 TO 2 CS PO QHS PRN active Not Available Not Available No t Available ciprofloxac in 250 mg tablet Take 1 tablet every 12 hours by oral route for 3 days. active Not Available Not Available No t Available ciprofloxac in 500 mg tablet Take 1 tablet every 12 hours by oral route for 7 days. 01/27 completed Not Available Not Available Not Available omeprazole 40 mg capsule,del ayed release TK 1 C PO QD 02/28 completed Not Available Not Available Not Available tramadol 50 mg tablet TAKE 1 TABLET BY MOUTH EVERY NIGHT AT BEDTIME NEEDED 10/25 completed Not Available Not Available Not Available nitrofurant oin 25 mg/5 mL oral suspension Take 10 mL every 6 hours by oral route for 7 days. 10/30 completed Not Available Not Available Not Available amoxicillin 400 mg-potassiu m clavulanate 57 mg/5 mL oral suspension TK 5 ML PO BID FOR 3 DAYS 08/25 completed Not Available Not Available Not Available oxycodone-a cetaminophe n 5 mg-325 mg tablet TAKE 1 TABLET BY MOUTH EVERY 4 TO 6 HOURS NEEDED FOR PAIN 10/25 completed Not Available Not Available Not Available ofloxacin 0.3 % ear drops INSTILL 10 DROPS (1.5 MG) INTO AFFECTED EAR(S) BY OTIC ROUTE 2 TIMES PER DAY x 7 days 07/26 completed Not Available Not Available Not Available lorazepam 0.5 mg tablet TK 1/2 TO 1 TS PO QD PRF ANIXIETY 08/14 completed Not Available Not Available Not Available diazepam 2 mg tablet TAKE 1 TABLET BY MOUTH THREE TIMES DAILY NEEDED active Not Available Not Available No t Available desloratadi ne 5 mg tablet 06/24 completed Not Available Not Available Not Available triamcinolo ne acetonide 40 mg/mL suspension for injection 1 ml IM x 1 07/28 completed Not Available Not Available Not Available cephalexin 250 mg/5 mL oral suspension SHAKE LIQUID AND TAKE 10 ML BY MOUTH THREE TIMES DAILY FOR 10 DAYS 11/26 completed Not Available Not Available Not Available esomeprazol e magnesium 40 mg capsule,del ayed release Take 1 capsule every day by oral route. 10/25 completed Not Available Not Available Not Available nitrofurant oin macrocrysta l 100 mg capsule Take 1 capsule twice a day by oral route for 7 days. active Not Available Not Available No t Available Cipro 250 mg/5 mL oral suspension Take 10 mL every 12 hours by oral route for 3 days. 04/30 completed Not Available Not Available Not Available polymyxin B sulfate 10,000 unit-trimet hoprim 1 mg/mL eye drops 07/26 completed Not Available Not Available Not Available lidocaine HCl 2 % mucosal solution active Not Available Not Available Not Available diclofenac sodium 75 mg tablet,grace yed release Take 1 tablet twice a day by oral route as needed. active Not Available Not Available No t Available amoxicillin 400 mg/5 mL oral suspension SHAKE LIQUID AND TAKE 10 ML BY MOUTH TWICE DAILY FOR 10 DAYS 10/25 completed Not Available Not Available Not Available mupirocin 2 % topical ointment 08/25 completed Not Available Not Available Not Available azithromyci n 200 mg/5 mL oral suspension TAKE 12.5 MILLILITE RS (500 MG) BY ORAL ROUTE ONCE DAILY FOR 1 DAY THEN 6.25 MILLILITE RS (250 MG) BY ORAL ROUTE ONCE DAILY FOR 4 DAYS active Not Available Not Available No t Available estradiol 0.01% (0.1 mg/gram) vaginal cream INSERT 1 GRAM VAGINALLY 2 TIMES A WEEK 10/25 completed Not Available Not Available Not Available methylpredn isolone 4 mg tablets in a dose pack FOLLOW PACKAGE DIRECTION S 09/02 completed Not Available Not Available Not Available ipratropium bromide 42 mcg (0.06 %) nasal spray USE 2 SPRAYS IN EACH NOSTRIL THREE TIMES DAILY 10/25 completed Not Available Not Available Not Available ketoconazol e 2 % topical cream APPLY TO TOENAIL TWICE DAILY 10/25 completed Not Available Not Available Not Available oxybutynin chloride 5 mg tablet 06/24 completed Not Available Not Available Not Available fluconazole 40 mg/mL oral suspension SHAKE LIQUID AND TAKE 5 ML BY MOUTH EVERY DAY FOR 3 DAYS. DISCARD REMAINDER 10/25 completed Not Available Not Available Not Available ondansetron 4 mg disintegrat ing tablet DISSOLVE 1 TABLET ON THE TONGUE EVERY 6 HOURS NEEDED FOR NAUSEA OR VOMITING active Not Available Not Available No t Available fluticasone propionate 50 mcg/actuati on nasal spray,suspe nsion 06/24 completed Not Available Not Available Not Available Cipro 500 mg/5 mL oral suspension Take 5 mL every 12 hours by oral route for 7 days. 01/27 completed Not Available Not Available Not Available ranitidine 15 mg/mL oral syrup TK 10 ML PO BID 08/14 completed Not Available Not Available Not Available amoxicillin 875 mg-potassiu m clavulanate 125 mg tablet TK 1 T PO Q 12 HOURS FOR 7 DAYS 10/25 completed Not Available Not Available Not Available escitalopra m 5 mg/5 mL oral solution 5 ml po qday x 2 weeks then increase to 10 ml po qday 04/30 completed Not Available Not Available Not Available cyclobenzap rine 5 mg tablet TAKE 1 TABLET BY MOUTH TWICE DAILY NEEDED 10/25 completed Not Available Not Available Not Available escitalopra m 5 mg tablet 1 po qday x 2 weeks then increase to 2 po qday active Not Available Not Available No t Available nitrofurant oin monohydrate /macrocryst als 100 mg capsule TK 1 C PO QD AFTER INTERCOUR SE active Not Available Not Available No t Available calcium carbonate 04/23 completed Not Available Not Available Not Available Claritin 04/11 completed Not Available Not Available Not Available Nasal Hel[place] 10/25 completed Not Available Not Available Not Available Zostavax (PF) 19,400 unit/0.65 mL subcutaneou s suspension ADM 0.65ML SC UTD 04/11 completed Not Available Not Available Not Available Omnaris 50 mcg nasal spray SPRAY 2 SPRAYS IN EACH NOSTRIL D active Not Available Not Available No t Available Patanase 0.6 % nasal spray active Not Available Not Available Not Available Vitamin D3 125 mcg (5,000 unit) tablet Take by oral route. 04/23 completed Not Available Not Available Not Available loratadine 10 mg capsule Take by oral route. 04/11 completed Not Available Not Available Not Available Xarelto 10 mg tablet TAKE 1 TABLET BY MOUTH EVERY DAY STARTING AFTER SURGERY 10/25 completed Not Available Not Available Not Available Nasacort 55 mcg nasal spray aerosol Take 2 sprays every day by nasal route. 12/18 completed Not Available Not Available Not Available Fluvirin 8597-2143 45 mcg (15 mcg x 3)/0.5 mL intramuscul ar suspension INJECT 0.5 ML INTRAMUSC ULARLY DIRECTED. active Not Available Not Available No t Available Rhinocort Allergy 32 mcg/actuati on nasal spray Take by nasal route. 04/11 completed Not Available Not Available Not Available Fluvirin 45 mcg (15 mcg x 3)/0.5 mL intramuscul ar suspension ADM 0.5ML IM UTD 09/14 completed Not Available Not Available Not Available Fluvirin 45 mcg (15 mcg x 3)/0.5 mL intramuscul ar suspension ADM 0.5ML IM UTD 04/11 completed Not Available Not Available Not Available Afluria Qd 2018- (36 mos up)(PF)60 mcg (15 mcg x4)/0.5 mL IM syringe ADM 0.5ML IM UTD 10/25 completed Not Available Not Available Not Available Afluria Qd 2019- (36 mos up)(PF)60 mcg (15 mcg x4)/0.5 mL IM syringe ADM 0.5ML IM UTD 10/25 completed Not Available Not Available Not Available Vitals Date Recorded Body mass index (BMI) Body mass index (BMI) Body height Body height Oxygen saturation Oxygen saturation in Arterial blood by Pulse oximetry Oxygen saturation Oxygen saturation in Arterial blood by Pulse oximetry Heart rate Heart rate Body temperature Body temperature Body weight Body weight Systolic blood pressure Diastolic blood pressure Systolic blood pressure Diastolic blood pressure Provider Name and Address Organization Details Last Updated DateTime 3 24.1 kg/m2 24.4 kg/m2 157.48 cm 157.48 cm 97 % 97 % 99 % 99 % 75 /min 73 /min 97.5 [degF] 96.6 [degF] 89483.1 9 g 46133.8 6 g 122 mm[Hg] 78 mm[Hg] 118 mm[Hg] 78 mm[Hg] Not Available [facility] 3 16:40:08 Date Recorded Body height Provider Name an d Address Organization Details Last Updated DateTime 10/07/2022 157.48 cm Nimisha Salas CMA [facility] [email or web address] [facility] 10/07/2022 14:16:21 Date Recorded Body height Provider Name an d Address Organization Details Last Updated DateTime 05/09/2023 157.48 cm Cheryl Boone RN [facility] [employer] [facility] 05/09/2023 15:46:42 Date Recorded Body height Body temperature Body mass index (BMI) Body weight Oxygen saturation Oxygen saturation in Arterial blood by Pulse oximetry Heart rate Systolic blood pressure Diastolic blood pressure Provider Name and Address Organization Details Last Updated DateTime 4 157.48 cm 97.8 [degF] 24.5 kg/m2 62188.6 6 g 98 % 98 % 91 /min 142 mm[Hg] 78 mm[Hg] Mingo Coulter RN [facility] [email or web address] [facility] 4 11:49:35 Social History Question Answer Notes LastModified by Organizat ion Details LastModified Time Tobacco Smoking Status Never Smoker Not Available [facility] 09/15/2022 16:39:25 What Is Your Level Of Alcohol Consumption? Occasional [id number] Information not available 09/15/2022 What Is Your Level Of Caffeine Consumption? Occasional [id number] Information not available 09/15/2022 How Much Tobacco Do You Chew? None [id number] Information not available 09/15/2022 In The 14 Days Before Symptom Onset, Have You Had Close Contact With A Laboratory-confir med COVID-19 While That Case Was Ill? No [id number] Information not available 09/15/2022 In The 14 Days Before Symptom Onset, Have You Had Close Contact With A Person Who Is Under Investigation For COVID-19 While That Person Was Ill? No [id number] Information not available 09/15/2022 What Type Of Diet Are You Following? REGULAR [id number] Information not available 09/15/2022 Which Illicit Or Recreational Drugs Have You Used? No [id number] Information not available 09/15/2022 Do You Or Have You Ever Used E-cigarettes Or Vape? Never Used Electronic Cigarettes [id number] Information not available 09/15/2022 What Was The Date Of Your Most Recent Tobacco Screening? 10/26/2023 [email or web address] Information not available 10/26/2023 Have You Ever Been Counseled For Unhealthy Alcohol Use? No [id number] Information not available 09/15/2022 What Is Your Relationship Status? [id number] Information not available 09/15/2022 Do You Use Your Seat Belt Or Car Seat Routinely? Yes [id number] Information not available 09/15/2022 Do You Or Have You Ever Used Smokeless Tobacco? Never Used Smokeless Tobacco [id number].[id number] Information not available 09/15/2022 How Much Tobacco Do You Smoke? No [id number] Information not available 09/15/2022 Do You Use Any Illicit Or Recreational Drugs? No [id number] [id number] Information not available 09/15/2022 Has Tobacco Cessation Counseling Been Provided? No [id number] Information not available 09/15/2022 Do You Have Any Dietary Restrictions? No No Beef [id number].[id number] Information not available 09/15/2022 Do You Or Have You Ever Used Any Other Forms Of Tobacco Or Nicotine? No [id number] Information not available 09/15/2022 Sex: Female Functional Status Question Answer Note LastModified by Organizat ion Details LastModified Time What is your exercise level? Moderate [id number] Information not available 09/15/2022 Mental Status None recorded. Family History Relationship Description Onset Age of this Age Resolved Age Notes LastModified by Organization Details LastModified Time Father Heart disease [id number] Not available 09/15/2022 16:39:28 Mother Kidney disease [id number] Not available 09/15/2022 16:39:28 Mother Hypertensive disorder [id number] Not available 09/15/2022 16:39:28 Mother Diabetes mellitus [id number] Not available 09/15/2022 16:39:28 Maternal Grandmother Malignant tumor of colon [email or web address] Not available 2023 11:45:00 Medical History Condition Response MRSA N SLEEP APNEA N ALLERGIES/HAYFEVER N LUNG DISEASE/DISORDER N INSOMNIA N RADIATION / CHEMOTHERAPY N COPD N HIGH CHOLESTEROL / HYPERLIPIDEMIA Y HYPERTHYROIDISM N BLOOD DISEASES N EAR OR HEARING PROBLEMS N HYPOTHYROIDISM N DEPRESSION (INCLUDING POST ) N HAVE YOU BEEN HOSPITALIZED OR SEEN IN [facility] ER IN THE PAST YEAR ? N STROKE/TIA N ULCERS N OBESITY N HISTORY WITH COMPLICATIONS WITH ANESTHES IA ? N ANEURYSM N USE OF BLOOD THINNERS N NO SIGNIFICANT PAST MEDICAL HISTORY N DIABETES, TYPE N PARATHYROID DISEASE N ENT N SEASONAL ALLERGIES Y HEARTBURN / REFLUX N HEPATITIS / LIVER DISEASE N SLEEP DISORDER N HEADACHES/MIGRAINES N SEIZURES/EPILEPSY N CHF N PACEMAKER N DIZZINESS N HEART DISEASE/HEART PROBLEMS N AIDS/HIV N FRACTURES N HYPERTENSION N CANCER: SPECIFY Y TOURETTE'S N BLOOD TRANSFUSION N ANESTHESIA COMPLICATIONS N ANEMIA/BLOOD DISORDER N CHRONIC EAR INFECTIONS N TUBERCULOSIS N Gynecological History Statement/Question Response Abnormal Pap N Date of Last Pap Smear 03/30/2021 Current Control Method Menopause Most Recent Mammogram Date of LMP Breast Problems no Obstetrics History GPAL:G 3 P 3 0 0 3 Type Value Full Term 3 Living 3 Total 3 Immunizations Vaccine Type Date Status Note Provider Nam e and Address Organization Details Recorded Time Tdap 3 completed Karuna Jacobson MD [address] [place] [address], [phone], [facility] [email or web address] [facility] 05/10/2023 13:40:41 Influenza, split virus, quadrivalent, preservative 9 completed Not Available [facility] 09/15/2022 16:41:18 Influenza, split virus, quadrivalent, preservative 6 completed Not Available [facility] 09/15/2022 16:41:18 Influenza, split virus, quadrivalent, preservative 6 completed Not Available [facility] 09/15/2022 16:41:18 Td (adult), 5 Lf tetanus toxoid, preservative free, adsorbed 5 completed Not Available [facility] 09/15/2022 16:41:18 Influenza, split virus, quadrivalent, PF 8 completed Not Available [facility] 09/15/2022 16:41:18 Td (adult), 2 Lf tetanus toxoid, preservative free, adsorbed 5 completed Not Available [facility] 09/15/2022 16:41:18 Influenza, split virus, quadrivalent, PF 5 completed Not Available [facility] 09/15/2022 16:41:18 Past Encounters Encounter ID Performer Location Encounter Start Date Encounter Closed Date Diagnosis/Indication Diagnosis SNOMED-CT Code Diagnosis ICD10 Code Diagnosis Note [id number] [facility] [place] [address] [facility] [address] [place] [address] 11/26/2020 00:00:00 11/27/2020 09:14:07 [id number] [facility] [address] [place] [address] 12/04/2020 00:00:00 12/04/2020 12:49:20 [id number] _ATHENA_M IGRATION_ DEFAULT_1 _1 , 03/30/2021 00:00:00 03/30/2021 12:21:51 [id number] [facility] [place] [address] [facility] [address] [place] [address] 04/10/2021 00:00:00 04/10/2021 18:01:47 [id number] [facility] [place] [address] [place] [address] [address] [place] [address] 05/04/2021 00:00:00 05/04/2021 15:09:24 [id number] [facility] [place] [address] [place] [address] [address] [place] [address] 01/07/2022 00:00:00 01/11/2022 20:01:06 [id number] [facility] [place] [address] [facility] [address] [place] [address] 02/17/2022 00:00:00 03/15/2022 20:06:49 [id number] [facility] [place] [address] [place] [address] DRIVE [address] [place] [address] 07/28/2022 00:00:00 07/28/2022 15:02:18 [id number] [facility] [place] [address] [place] [address] 09/02/2022 00:00:00 09/12/2022 20:09:59 [id number] Karuna Jacobson MD [facility] [place] [address] [place] [address] 10/07/2022 14:07:22 10/07/2022 14:17:38 [id number] Karuna Jacobson MD [facility] [place] [address] [place] [address] 05/09/2023 14:57:38 05/09/2023 15:49:41 [id number] Karuna Jacobson MD [facility] [place] [address] [place] [address] 10/26/2023 11:44:04 10/26/2023 12:35:46 Adult health examination 846791398 Z00.00 Colonoscop y 07/16/22 normal repeat 10 yearsSees financial services auditor for pap, DEXA, mammograms Fasting labs up to dateComple christina shingrix seriesTdap 2022Flu vaccine yearlyCovi d booster per cdc recommenda tionsPneum ovax 23 given in 2021 Osteopenia 704895822 M85 .80 DEXA done in 2022walk dailyCalci um + D bid Hyperlipidemia 14246816 E78.5 reviewed resultsok to continue healthy diet/exerc ise Allergic rhinitis 006441 04 J30.9 can take fexofenadi ne and rhinocorti f no improvemen t, consider triamcinol one shot Acute situ ational disturbance 582059437 F43.20 uses diazepam sparingly when driving longer distancesr efill given, last refill was 2021 Pain of left hand 548359 6698 89774 M79.642 Health Concerns Section Related Observation LastModified by Organization Detai ls LastModified Time None Recorded Concern Status LastModified by Organization Details LastModified Time None Recorded Advance Directives Directive None Recorded Payers Encounter Date Sequence Insurance Name Policy Number Policy Tian Covered Member ID Tian Member ID Guarantor Name 10/07/2022 1 [place] [id number] Vasu Ventura [id number] Sheila Ventura 05/09/2023 1 [place] [id number] Vasu Ventura [id number] Sheila Ventura 10/26/2023 1 [place] [id number] Vasu Ventura [id number] Sheila Ventura Notes Date Note Type Note Provider Name and Address Organization Details Recorded Time 10/26/2023 text/html here for velia s exam bunion on left foot 09/10 which included a fusion of big toe due to OA. Was 9 days out of her left foot boot, and slipped and broke 5th metatarsal right foot-in boot right now, will be released in 2 weeks. Recently had headache with sinus infection and after abx, headache did improve but now waking up with headache in AM that is mild and is improved with neti pot. Home blood pressure in AM is normal to low. She has long h/o allergies and thinks that has been a assisted issues. Uses claritin and rhinocort. Pain pointer finger of left hand Karuna Jacobson MD [address] [place] [address], [place] [address], [place], [address], [place] [facility] [employer] 12/05/2023 14:43:33 OBGyn Episode No OBEpisode recorded.
--- OUTSIDE RECORDS SUMMARY | 2024-08-22 13:51 | XMS_ITS | Referral Summary ---
Author Organization [facility] Address [address] [place] [address] Care Team Providers Care Burrer Operator Name Role Phone Alejandra Mazariegos Trish LEWIS Primary Care Provider [phone] Encounters Date Type Department Care Team Description 07/25/2024 10:15 AM UNIVERSAL BANKER Office Visit [facility]mology [address], [address] [phone] Sweetie Carpenter MD Corneal ulcer of right eye (Primary Dx); S/P LASIK (laser assisted in situ keratomileusis) 06/22/2024 Telephone [facility] [address], [address] [place] [phone] Sweetie Carpenter MD 06/13/2024 10:00 AM UNIVERSAL BANKER Office Visit [facility] [address], [address] [phone] Sweetie Carpenter MD Corneal ulcer of right eye (Primary Dx); S/P LASIK (laser assisted in situ keratomileusis) 06/04/2024 Telephone [facility] [address] [place] [address] Sweetie Carpenter MD Medical Records Request 05/30/2024 Telephone [facility] [place] [address] Sweetie Carpenter MD Medical Records Request 05/30/2024 8:45 AM UNIVERSAL BANKER Office Visit [facility] [address] [facility] 2[address], [address] [place] [address] Sweetie Carpenter MD Corneal ulcer of right eye (Primary Dx); S/P LASIK (laser assisted in situ keratomileusis) from Last 3 Months Allergies Active Allergy Reactions Criticality Noted Date Comments Cyclobenzaprine Rash Medium Monosodium Glutamate Sulfa (Sulfonamide Antibiotics) Flushing (skin) Low 04/30/2020 Sulfites Shortness of breath High 06/28/2012 Verapamil Medications glucosamine-vanessa droitin 500-400 mg tablet Active busPIRone (BUSPAR) 5 mg tabletIndication s:Generalized Anxiety Disorder 0 12/02/19 18 Active calcium carbonate-vitami n D3 (CALCIUM+D) 400-133.3 mg-unit tablet Activ e calcium carbonate-vitami n D3 1,500 mg (600mg elemental) -800 unit per tablet Acti ve loratadine (CLARITIN LIQUI-GEL) 10 mg capsule Active omeprazole (PriLOSEC) 40 mg capsule 0 01/17/20 18 Active ascorbic acid (ascorbic acid) 500 mg tablet,chewable Acti ve budesonide (RHINOCORT AQUA) 32 mcg/actuation nasal spray Administer 1 spray into each nostril daily Active calcium carbonate-mag hydroxid 1,000-200 mg tablet,chewable Acti ve loratadine (CLARITIN ORAL) Acti ve flu vaccine au2026-45,4 yr,up, (FLUVIRIN 9892-6042 IM) Fluvirin 9323-3024 45 mcg (15 mcg x 3)/0.5 mL intramuscular suspension INJECT 0.5 ML INTRAMUSCULARLY DIRECTED. Active cholecalciferol (VITAMIN D-3) 5,000 unit tablet Vitamin D3 5,000 unit tablet Take by oral route. Activ e ciclesonide (OMNARIS) 50 mcg nasal spray Active diclofenac DR (VOLTAREN) 75 mg EC tablet every 12 hours Activ e olopatadine (PATANASE) 0.6 % spray,non-aeroso l Patanase 0.6 % nasal spray Active budesonide (RHINOCORT ALLERGY) 32 mcg/actuation nasal spray Rhinocort Allergy 32 mcg/actuation nasal spray Take by nasal route. Active nystatin 100,000 unit/mL suspension 01/28/20 20 Active nitrofurantoin monohydrate (MACROBID) 100 mg capsule Active influenza quadrivalent 3765-7102 (Afluria Qd 2018-,3yr up,,PF,) 60 mcg (15 mcg x 4)/0.5 mL syringe Afluria Qd 2018- (36 mos up)(PF)60 mcg (15 mcg x4)/0.5 mL IM syringe ADM 0.5ML IM UTD Active moxifloxacin (VIGAMOX) 0.5 % ophthalmic solution Administer 1 drop into the right eye every 2 (two) hours while awake 6 mL 2 05/08/20 24 Active Additional Information Patient not taking.Reported on 06/13/2024 voriCONAZOLE ophthalmic solution 10 mg/mL Administer 1 drop into the right eye 6 (six) times a day 10 mL 2 05/11/20 24 Active dorzolamide-evita loL (COSOPT) 22.3-6.8 mg/mL ophthalmic solution Administer 1 drop into the left eye 2 (two) times a day 10 mL 2 05/30/20 24 Active Active Problems Problem Noted Date Diagnosed Date Ductal carcinoma in situ (DCIS) of left breast 0 01/24/2019 History of breast cancer 01/30/2018 Acquired absence of both breasts 01/30/2018 Cancer ([facility]) 07/18/2010 Overview (05/08/2024): L breast cancer. bilateral mastectomy Social History Tobacco Use Types Packs/Day Years Used Date Smoking Tobacco: Never Smokeless Tobacco: Never Comments No Sex and Gender Information Value Date Recorded Sex Assigned at Not on file Legal Sex Female 3:09 AM UNIVERSAL BANKER Gender Identity Not on file Sexual Orientation Not on file Last Filed Vital Signs Vital Sign Reading Time Taken Comments Blood Pressure 93/52 12/28/2011 8:25 AM CDT Pulse 76 12/28/2011 8:25 AM CDT Temperature - - Respiratory Rate - - Oxygen Saturation - - Inhaled Oxygen Concentration - - Weight 56.7 kg (125 lb) 05/13/2021 1:23 PM CDT Height 152.4 cm (5') 05/13/2021 1:23 PM CDT Body Mass Index 24.41 05/13/2021 1:23 PM CDT Plan of Treatment Not on file Insurance BLUE ACCESS OOS BLUE ACCESS OOS Care Teams Burrer Operator Relationship Specialty Start Date End Date Alejandra Mazariegos NP [address] [place] [address] PCP - General Nurse Practitioner 05/10/24
--- OUTSIDE RECORDS SUMMARY | 2024-08-22 13:51 | XMS_ITS | Clinical Summary ---
Author Organization [facility] Address [address] [place] [address] Care Team Providers Care Curer Foam Rubber Name Role Phone Unavailable Primary Care Provider Unavailabl e Social History Tobacco Use Types Packs/Day Years Used Date Smoking Tobacco: Never Assessed Comments Unknown Sex and Gender Information Value Date Recorded Sex Assigned at Not on file Legal Sex Female 8:43 PM CDT Gender Identity Not on file Sexual Orientation Not on file Plan of Treatment Health Maintenance Due Date Last Done Comments Colorectal Cancer Screening Colonoscopy (10 Years) 1955 Hepatitis C 1973 DTaP, Tdap and Td Vaccines ( 1 - Tdap) 1974 Mammogram Screening 1995 Zoster Vaccines (1 of 2) 2005 Dexa Scan (General) 02/20/2020 Pneumococcal Vaccine: 65+ Ye ars (1 of 1 - PCV) 02/20/2020 COVID-19 Vaccine ( - 2023-2 5 season) 2024 Influenza Adult (#1) 2024 RSV Immunization or 60+ Years (1 - 1-dose 75+ series) 2030 Meningococcal B Vaccine Aged Out No l onger eligible based on patient's age to complete this topic Meningococcal Vaccine Aged Out No yun pearl eligible based on patient's age to complete this topic RSV Immunizations Under 20 Months Aged Out No longer eligible based on patient's age to complete this topic Procedures Procedure Name Priority Date/Time Associated Diagnosis Comments COLONOSCOPY Routine SEPARATIONS SCIENTIST from Last 3 Months or Most Recently Relevant to Health Maintenance Results * Colonoscopy ( SEPARATIONS SCIENTIST) Narrative [facility] TO EPIC CONVERSION - SEPARATIONS SCIENTIST Documented hx of procedure Procedure Note , Generic Conversion, - 05/21/2018 Documented hx of procedure us Generic Conversion Md CAMAR[facility] GI PROCEDURE ORDERABLES Final Result [facility] TO EPIC CONVERSION from Last 3 Months or Most Recently Relevant to Health Maintenance
--- OUTSIDE RECORDS SUMMARY | 2024-08-22 13:51 | XMS_ITS | Clinical Summary ---
Author Organization [facility] Address [address] [place] [address] Care Team Providers Care Instrumentation Tech Name Role Phone Alejandra Mazariegos Trish SPACE CONTROL SUPERVISOR Primary Care Provider Allergies Active Allergy Reactions Criticality Noted Date [...] loratadine (CLARITIN ORAL) Acti ve flu vaccine [id number],4 yr,up, (FLUVIRIN [id number] IM) Fluvirin [id number] 45 mcg (15 mcg x 3)/0.5 mL [...] (MACROBID) 100 mg capsule Active influenza quadrivalent (Afluria Qd ,3yr up,,PF,) 60 mcg (15 mcg x 4)/0.5 mL syringe Afluria Qd (36 mos up)(PF)60 mcg (15 mcg x4)/0.5 [...] Acquired absence of both breasts 01/30/2018 Cancer (CMS/HCC) 07/18/2010 Overview (05/08/2024): L breast cancer. bilateral mastectomy Encounters Date Type Department Care Team Description 07/25/2024 10:15 AM LAPEL PADDER BLINDSTITCH Office Visit [facility] [address], [address] [place] [address] Sweetie Carpenter MD Corneal ulcer of right eye (Primary Dx); S/P LASIK (laser assisted in situ keratomileusis) 06/22/2024 Telephone [facility] [address], [address] [place] [address] Sweetie Carpenter MD 06/13/2024 10:00 AM LAPEL PADDER BLINDSTITCH Office Visit [facility] [address], [address] [place] [address] Sweetie Carpenter MD Corneal ulcer of right eye (Primary Dx); S/P LASIK (laser assisted in situ keratomileusis) 06/04/2024 Telephone [facility] [address] [place] [address] Sweetie Carpenter MD Medical Records Request 05/30/2024 8:45 AM LAPEL PADDER BLINDSTITCH Office Visit [facility] [address], [address] [place] [address] Sweetie Carpenter MD Corneal ulcer of right eye (Primary Dx); S/P LASIK (laser assisted in situ keratomileusis) 05/30/2024 Telephone [facility] [address] [place] [address] Sweetie Carpenter MD Medical Records Request from Last 3 Months Surgical History Surgery Date Site/Laterality Comments LASIK 07/18/2019 - 07/17/2020 Bilateral Medical History Medical History Date Comments Cataract Cancer (CMS/HCC) (HCC) 2010 L breast cancer. bilateral mastectomy Family History Medical History Relation Name Comments Glaucoma Neg Hx Macular degeneration Neg Hx Social History Tobacco Use Types Packs/Day Years Used Date Smoking Tobacco: Never Smokeless Tobacco: Never Comments No Sex and Gender Information Value Date Recorded Sex Assigned at Not on file Legal Sex Female 3:09 AM LAPEL PADDER BLINDSTITCH Gender Identity Not on file Sexual Orientation Not on file Obstetrics History Last Filed Vital Signs Vital Sign Reading [...] 05/13/2021 1:23 PM CDT Plan of Treatment Health Maintenance Due Date Last Done Comments Breast Cancer Screening-Mammogram 1955 Colon Cancer Screening-Colonoscopy 1955 Depression Screening 1955 Fall Risk Assessment 1955 Hepatitis C Screening 1955 Osteoporosis Screening-Bone Density Scan 1955 Hepatitis B Screening 1973 Zoster Vaccine (2 of 3) 05/02/2016 03/07/2016 Pneumococcal vaccine 65+ (1 of 1 - PCV) 02/20/2020 Well Visit 65+ 02/20/2020 Influenza Vaccine (#1) 2024 9, 05/02/2018, 05/10/2017, Additional history exists DTaP/Tdap/Td Vaccine (2 - Td or Tdap) 05/09/2033 05/09/2023, 11/05/2014, 11/05/2014 Insurance [employer] ACCESS OOS Care Teams Instrumentation Tech Relationship Specialty Start Date End Date Alejandra Mazariegos NP [address] [place] [address] PCP - General Nurse Practitioner 05/10/24
--- OUTSIDE RECORDS SUMMARY | 2024-08-22 13:51 | XMS_ITS | Clinical Summary ---
Author Organization [facility] Address [address] [place] [address] Care Team Providers Care Utilization Review Rn Name Role Phone Unavailable Primary Care Provider Unavailabl e Source Comments [facility],non-owned Affiliates and Associated Physician Practices is amultiple site organization consisting of ambulatory clinics and hospital sitesin [place], [place], [place] and [place]. This disclosure is being madepursuant to the Care Everywhere program and may not contain all information available regarding this patient. Last updated 18.[facility] Social History Tobacco Use Types Packs/Day Years Used Date Smoking Tobacco: Never Assessed Sex and Gender Information Value Date Recorded Sex Assigned at Not on file Gender Identity Not on file Sexual Orientation Not on file Plan of Treatment Health Maintenance Due Date Last Done Comments BONE DENSITY TESTING 1955 COLOGUARD (AGES 45-75) - COL ON CA SCREENING 1955 COLON MONITORING 1955 COLONOSCOPY - COLON CA SCREENING 1955 CT COLONOGRAPHY - COLON CA SCREENING 1955 Colorectal Cancer Screening 1955 FIT - COLON CA SCREENING 1955 FLEX SIG - COLON CA SCREENING 1955 LIPID TESTING 1955 MAMMOGRAM 1955 HEPATITIS C SCREENING 02/14/1973 DTAP/TDAP/TD VACCINES (1 - Tdap) 1974 PNEUMOCOCCAL VACCINE 50+ (1 of 1 - PCV) 2005 ZOSTER VACCINE (1 of 2) 2005 COVID-19 VACCINE ( - 2023-2 5 season) 2024 INFLUENZA VACCINE (#1) 2024 DEPRESSION SCREENING 07/18/2024 Respiratory Syncytial Virus (RSV) Vaccine Pt: or over 60 yrs (1 - 1-dose 75+ series) 2030 HEPATITIS B VACCINE Aged Out No longe r eligible based on patient's age to complete this topic HIB VACCINE Aged Out No longer eligi ble based on patient's age to complete this topic HPV VACCINE Aged Out No longer eligi ble based on patient's age to complete this topic MENINGOCOCCAL (Group B) VACCINE Aged Out No longer eligible based on patient's age to complete this topic MENINGOCOCCAL VACCINE Aged Out No yun pearl eligible based on patient's age to complete this topic
== END 2024-08-22 12:54 | disposition home or self-care (01) ==
PROVIDERS: PCP Family Medicine; Referring Provider Obstetrics & Gynecology; Visit Provider Physician Assistant Medical
DX: T85.848A Pain due to other internal prosthetic devices, implants and grafts, initial encounter (principal); N63.21 Unspecified lump in the left breast, upper outer quadrant; Z85.3 Personal history of malignant neoplasm of breast; X58.XXXA Exposure to other specified factors, initial encounter
CPT/HCPCS: 76642

== ENCOUNTER 2024-09-21 07:49 | Outpatient (CLI) | payer BC, SELFPAY ==
--- NOTE | ~2024-09-21 | MR_ITS ---
EXAMINATION: MR breast BI wo/w con INDICATION: Left breast mass TECHNIQUE: Axial VIBRANT pre and dynamic post contrast, Sagittal VIBRANT post contrast, Axial T2 STIR ASSET COMPARISON: Ultrasound dated 08/22/2024 CONTRAST: Multihance, 12 cc BREAST COMPOSITION: Almost entirely fat FINDINGS: RIGHT BREAST: Breast implant in place, without evidence of rupture. There is minimal background paren chymal enhancement. No abnormal enhancement is present after contrast administration. No pathological ly enlarged axillary or internal mammary lymph nodes are identified. LEFT BREAST: Breast implant in place, without evidence of rupture. There is minimal background parenc hymal enhancement. No abnormal enhancement is present after contrast administration. No pathologicall y enlarged axillary or internal mammary lymph nodes are identified. IMPRESSION: No definite MR correlate seen for the small left breast masses identified on prior ultrasound. Prior ultrasound lesions are probably benign. Recommend 6 month follow-up ultrasound to reassess. BI-RADS category 3, probably benign findings. Reviewed, dictated and finalized at location . IMPRESSION: No definite MR correlate seen for the small left breast masses identified on p rior ultrasound. Prior ultrasound lesions are probably benign. Recommend 6 sal h follow-up ultrasound to reassess. BI-RADS category 3, probably benign findings.
--- OUTSIDE RECORDS SUMMARY | 2024-09-21 07:58 | XMS_ITS | Clinical Summary ---
Author Organization [facility] Address [address] [place] [address] Care Team Providers Care Health Plan Advisor Name Role Phone Unavailable Primary Care Provider [...] Priority Date/Time Associated Diagnosis Comments COLONOSCOPY Routine UPHOLSTERY TECHNICIAN from Last 3 Months or Most Recently Relevant to Health Maintenance Results * Colonoscopy ( UPHOLSTERY TECHNICIAN) Narrative [facility] TO EPIC CONVERSION - UPHOLSTERY TECHNICIAN Documented hx of procedure Procedure Note , Generic Conversion, - 05/21/2018 Documented hx of procedure us Generic Conversion Md [facility] PROCEDURE ORDERABLES Final Result [facility] TO EPIC CONVERSION from Last 3 Months or Most Recently Relevant to Health Maintenance
--- OUTSIDE RECORDS SUMMARY | 2024-09-21 07:58 | XMS_ITS | Encounter Summary ---
Author Organization [facility] Address [address] [place] [address] Care Team Providers Care Drop Press Hand Name Role Phone Unavailable Primary Care Provider Unavailabl e Encounter Details Date Type Department Care Team (Late st Contact Info) Description 04/20/2018 Lab Requisition [facility] [address] [facility] [place] [id number] Nikia Dawn MD [address] [facility] [address] [place] [address] Social History Tobacco Use Types Packs/Day Years [...] AM CDT) Case Report Dermatopathology Report Case: [id number] Authorizing Provider: Nikia Dawn MD Collected: 04/18/2018 [...] The specimen consists of a punch measuring [id number]. The margin is inked green. The specimen is bisected and submitted in 1 cassette. Jar 0. [facility] Dermatopathology Laboratory performed the technical component only. [...] characteristic determined by the Dermatopathology Laboratory at [facility]. These tests need not be, and therefore are not, approved by the [place] Food and Drug Administration. The tests are used for clinical purposes. 12:53 PM CDT DERMATOPATHOLOGY LABORATORY Pathology/Cytolog y TISSUE SPECIMEN FROM SKIN / Unknown 04/18/2018 04/20/2018 6:38 AM CDT Nikia Dawn MD LAB - PATHOLOGY/CYT OLOGY ORDERABLES DERMATOPATHOLOGY LABORATORY [facility] - Department of Dermatology [address] [facility], 5th Floor Lab [address] [phone] documented in this encounter Visit Diagnoses Not on filedocumented in this encounter
--- OUTSIDE RECORDS SUMMARY | 2024-09-21 07:58 | XMS_ITS ---
Author Organization [facility] Address [address] [place], [place] [address] Care Team Providers Care Brazer Electronic Name Role Phone KIM CHAVES Unavailable [phone] Sirisha Jacobson Unavailable Unavailable REASON FOR VISIT *Injection follow-up Encounters Encounter Location Date Provider Diagnosis [facility] [address] [place], [place] [id number] 03/29/2024 KIM CHAVES Plan Of Treatment No Information Progress Notes * Arabella VENTURAB:1955 (69 yo F)Acc No.[id number]:03/29/2024 Patient: Sheila BENITO Provider: Velma Chaves DPM :1955 A ge:69 Y S ex:Female Date:03/29/2024 Address:[address] [place], [place] [id number] Subjective: * Chief Complaints: * 1 . *Injection follow-up. * Medical History: Objective: * Vitals: Assessment: Plan: * Treatment: * Billing Information: * Visit Code: * Procedure Codes: * Electronic signature of KIM CHAVES DPM on 09/21/2024 at 07:58 AM MR TEACHER Sign off status: Pending * Provider: Velma Chaves DPM Date: 0 03/29/2024 Generated for Von floyd/Rola/eTransmitting on: 0 09/21/2024 07:58 AM MR TEACHER
--- OUTSIDE RECORDS SUMMARY | 2024-09-21 07:58 | XMS_ITS | Patient Health Summary ---
Author Organization [facility] Address [address] [place] [address] Care Team Providers Care Hair Mixer Name Role Phone Unavailable Primary Care Provider Unavailabl e Note from [facility] [place],non-owned Affiliates and Associated Physician Practices is amultiple site organization consisting of ambulatory clinics and hospital sitesin [place], [place], [place] and [place]. This disclosure is being madepursuant to the Care Everywhere program and may not contain all information available regarding this patient. Last updated 18.[facility] [employer] Social History Tobacco Use Types Packs/Day Years [...] is included. Case Report Dermatopathology Report Case: [id number] Authorizing Provider: Nikia Dawn MD Collected: 05/12/2018 [...] of a non-oriented ellipse of skin measuring [id number]. The epidermal surface consists of a centrally located 8x6mm previous biopsy site. The margin is inked green. The 12 o'clock and 6 o'clock tips are submitted in cassette 1. The remainder of the ellipse is serially sectioned and submitted in cassettes 2-3. Jar 0. [facility] Dermatopathology Laboratory performed the technical component [...] characteristic determined by the Dermatopathology Laboratory at [facility]. These tests need not be, and therefore are not, approved by the [place] Food and Drug Administration. The tests are used for clinical purposes. 3:39 PM CDT DERMATOPATHOLOGY LABORATORY Pathology/Cytolog y TISSUE SPECIMEN FROM SKIN / Unknown 05/12/2018 05/12/2018 1:22 PM CDT Nikia Dawn MD LAB - PATHOLOGY/CYT OLOGY ORDERABLES DERMATOPATHOLOGY LABORATORY [facility] - Department of Dermatology [facility]th [place] [address], [place] [phone]
--- OUTSIDE RECORDS SUMMARY | 2024-09-21 07:58 | XMS_ITS | Data Portability ---
Author Organization [facility] [employer], Main Office Address [address] [place] [address] Care Team Providers Care Tax Intern Name Role Phone KARUNA JACOBSON Primary Care Provider [phone] KARUNA JACOBSON Referring Provider [phone] Assessment No assessment recorded. Plan of Treatment Reminders Order Date Submit Date Provider Last Modified By Organization Details Last Modified Time Details Appointments None recorded. Lab None recorded. Referral None recorded. Procedures None recorded. Surgeries None recorded. Imaging XR, hand 2023 024 [email or web address] Not available 13:45:45 Medication Orders diazepam 2 mg tablet 2023 024 [id number], [address], [place], [place], [id number], 12:34:54 Patient TargetsNo targets recorded. Patient InstructionsNo instructions recorded. Reason for Referral None Reported. Results Created Date Observation Date Name Description Value Unit Range Abnormal Flag Note LastModifiedBy Organization Detail LastModifiedTime 10/08/1910/07/2022 rapid strep group A, throa t STREP A negati ve Not Available [facility] [address], [place], [address], 10/07/2022 08:39:36 07/14/20 23 07/15/2023 CBC/D IFF AMBIG UOUS DEFAU LT WBC 5.2 x10e3 /uL 3.4-10 .8 Not Available [facility] ([facility]) [address] [facility], [place], [address], 07/15/2023 08:21:25 07/14/20 23 07/15/2023 CBC/D IFF AMBIG UOUS DEFAU LT RBC 4.76 x10e6 /uL 3.77-5 .28 Not Available [facility] ([facility]) [address] [facility], [place], [address], 07/15/2023 08:21:25 07/14/20 23 07/15/2023 CBC/D IFF AMBIG UOUS DEFAU LT hemoglobin 15.2 g/dL 11.1-1 5.9 Not Available [facility] ([facility]) [address] [facility], [place], [address], 07/15/2023 08:21:25 07/14/20 23 07/15/2023 CBC/D IFF AMBIG UOUS DEFAU LT hematocrit 44.7 % 34.0-4 6.6 Not Available [facility] ([facility]) [address] [facility], [place], [address], 07/15/2023 08:21:25 07/14/20 23 07/15/2023 CBC/D IFF AMBIG UOUS DEFAU LT MCV 94 fL 79-97 Not Available [facility] ([facility]) [address] [place], [address], 07/15/2023 08:21:25 07/14/20 23 07/15/2023 CBC/D IFF AMBIG UOUS DEFAU LT MCH 31.9 pg 26.6-3 3.0 Not Available [facility] ([facility]) [address] [place], [address], 07/15/2023 08:21:25 07/14/20 23 07/15/2023 CBC/D IFF AMBIG UOUS DEFAU LT MCHC 34.0 g/dL 31.5-3 5.7 Not Available [facility] ([facility]) [address] [place], [address], 07/15/2023 08:21:25 07/14/20 23 07/15/2023 CBC/D IFF AMBIG UOUS DEFAU LT RDW 11.8 % 11.7-1 5.4 Not Available [facility] ([facility]) [address] [facility], [place], [address], 07/15/2023 08:21:25 07/14/20 23 07/15/2023 CBC/D IFF AMBIG UOUS DEFAU LT platelets 277 x10e3 /uL 150-45 0 Not Available [facility] ([facility]) [address] [facility], [place], [address], 07/15/2023 08:21:25 07/14/20 23 07/15/2023 CBC/D IFF AMBIG UOUS DEFAU LT neutrophils 59 % not estab. Not Available [facility] ([facility]) [address] [facility], [place], [address], 07/15/2023 08:21:25 07/14/20 23 07/15/2023 CBC/D IFF AMBIG UOUS DEFAU LT lymphs 33 % not estab. Not Available [facility] ([facility]) [address] [facility], [place], [address], 07/15/2023 08:21:25 07/14/20 23 07/15/2023 CBC/D IFF AMBIG UOUS DEFAU LT monocytes 6 % not estab. Not Available [facility] ([facility]) [address] [facility], [place], [address], 07/15/2023 08:21:25 07/14/20 23 07/15/2023 CBC/D IFF AMBIG UOUS DEFAU LT eos 2 % not estab. Not Available [facility] ([facility]) [address] [facility], [place], [address], 07/15/2023 08:21:25 07/14/20 23 07/15/2023 CBC/D IFF AMBIG UOUS DEFAU LT basos 0 % not estab. 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 0 Not Available [facility] ([facility]) [address] [facility], [place], [address], 07/15/2023 08:21:25 07/14/20 23 07/15/2023 CBC/D IFF AMBIG UOUS DEFAU LT lymphs (absolute) 1.7 x10e3 /uL 0.7-3. 1 Not Available [facility] ([facility]) [address] [place], [address], 07/15/2023 08:21:25 07/14/20 23 07/15/2023 CBC/D IFF AMBIG UOUS DEFAU LT monocytes(ab solute) 0.3 x10e3 /uL 0.1-0. 9 Not Available [facility] ([facility]) [address] [facility], [place], [address], 07/15/2023 08:21:25 07/14/20 23 07/15/2023 CBC/D IFF AMBIG UOUS DEFAU LT eos (absolute) 0.1 x10e3 /uL 0.0-0. 4 Not Available [facility] ([facility]) [address] [place], [address], 07/15/2023 08:21:25 07/14/20 23 07/15/2023 CBC/D IFF AMBIG UOUS DEFAU LT baso (absolute) 0.0 x10e3 /uL 0.0-0. 2 Not Available [facility] ([facility]) [address] [facility], [place], [address], 07/15/2023 08:21:25 07/14/20 23 07/15/2023 CBC/D IFF AMBIG UOUS DEFAU LT immature granulocytes 0 % not estab. Not Available [facility] ([facility]) [address] [facility], [place], [address], 07/15/2023 08:21:25 07/14/20 23 07/15/2023 CBC/D IFF AMBIG UOUS DEFAU LT immature grans (abs) 0.0 x10e3 /uL 0.0-0. 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 Not Available [facility] ([facility]) [address] [facility], [place], [address], 07/15/2023 08:21:25 07/14/2007/15/2023 BASIC METAB OLIC PANEL (8) glucose 101 mg/dL 70-99 above high normal Not Available [facility] ([facility]) [address] [facility] [place], [address], 07/15/2023 08:21:26 07/14/20 23 07/15/2023 BASIC METAB OLIC PANEL (8) BUN 14 mg/dL 8-27 Not Available [facility] ([facility]) [address] [facility] [place], [address], 07/15/2023 08:21:26 07/14/20 23 07/15/2023 BASIC METAB OLIC PANEL (8) creatinine 0.74 mg/dL 0.57-1 .00 Not Available [facility] ([facility]) [address] [facility], [place], [address], 07/15/2023 08:21:26 07/14/20 23 07/15/2023 BASIC METAB OLIC PANEL (8) eGFR 88 mL/mi n/1.7 3 >59 Not Available [facility] ([facility]) [address] [facility] [place], [address], 07/15/2023 08:21:26 07/14/2007/15/2023 BASIC METAB OLIC PANEL (8) BUN/creatini ne ratio 19 - Not Available [facility]) [address] [place], [address], 07/15/2023 08:21:26 07/14/20 23 07/15/2023 BASIC METAB OLIC PANEL (8) sodium 142 mmol/ L 134-14 4 Not Available [facility] ([facility]) [address] [place], [address], 07/15/2023 08:21:26 07/14/20 23 07/15/2023 BASIC METAB OLIC PANEL (8) potassium 4.6 mmol/ L 3.5-5. 2 Not Available [facility] ([facility]) [address] [place], [address], 07/15/2023 08:21:26 07/14/20 23 07/15/2023 BASIC METAB OLIC PANEL (8) chloride 106 mmol/ L 96-106 Not Available [facility] ([facility]) [address] [place], [address], 07/15/2023 08:21:26 07/14/20 23 07/15/2023 BASIC METAB OLIC PANEL (8) carbon dioxide, total 23 mmol/ L 20-29 Not Available [facility] ([facility]) [address] [place], [address], 07/15/2023 08:21:26 07/14/20 23 07/15/2023 BASIC METAB OLIC PANEL (8) calcium 10.0 mg/dL 8.7-10 .3 Not Available [facility] ([facility]) [address] [place], [address], 07/15/2023 08:21:26 07/14/20 23 07/15/2023 LIPID PANEL cholesterol, total 257 mg/dL 100-19 9 above high normal Not Available [facility] ([facility]) [address] [place], [address], 07/15/2023 08:21:27 07/14/20 23 07/15/2023 LIPID PANEL triglyceride s 75 mg/dL 0-149 Not Available [facility]) [address] [place], [address], 07/15/2023 08:21:27 07/14/20 23 07/15/2023 LIPID PANEL HDL cholesterol 80 mg/dL >39 Not Available [facility] [address] [place], [address], 07/15/2023 08:21:27 07/14/20 23 07/15/2023 LIPID PANEL VLDL cholesterol eddie 12 mg/dL 5-40 Not Available [facility]) [address] [facility], [place], [address], 07/15/2023 08:21:27 07/14/20 23 07/15/2023 LIPID PANEL LDL chol calc ([facility]) 165 mg/dL 0-99 above high normal Not Available [facility] ([facility]) [address] [facility], [place], [address], 07/15/2023 08:21:27 07/14/20 23 07/15/2023 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 5 Not Available [facility] ([facility]) [address] [facility], [place], [address], 07/15/2023 08:21:28 07/14/20 23 07/15/2023 HEPAT IC FUNCT ION PANEL (7) albumin 4.5 g/dL 3.9-4. 9 Not Available [facility] ([facility]) [address] [place], [address], 07/15/2023 08:21:28 07/14/20 23 07/15/2023 HEPAT IC FUNCT ION PANEL (7) bilirubin, total 0.4 mg/dL 0.0-1. 2 Not Available [facility] ([facility]) [address] [place], [address], 07/15/2023 08:21:28 07/14/20 23 07/15/2023 HEPAT IC FUNCT ION PANEL (7) bilirubin, direct 0.14 mg/dL 0.00-0 .40 Not Available [facility] ([facility]) [address] [facility], [place], [address], 07/15/2023 08:21:28 07/14/20 23 07/15/2023 HEPAT IC FUNCT ION PANEL (7) alkaline phosphatase 61 IU/L 44-121 Not Available [facility] [address] [facility], [place], [address], 07/15/2023 08:21:28 07/14/20 23 07/15/2023 HEPAT IC FUNCT ION PANEL (7) AST (SGOT) 17 IU/L 0-40 Not Available [facility] ([facility]) [address] [facility], [place], [address], 07/15/2023 08:21:28 07/14/20 23 07/15/2023 HEPAT IC FUNCT ION PANEL (7) ALT (SGPT) 19 IU/L 0-32 Not Available [facility] ([facility]) [address] [place], [address], 07/15/2023 08:21:28 07/14/20 23 07/15/2023 VITAM IN [...] um and D. Yesi church [place]: [facility] . 2. Santy streeter MF, Tristan mcgee [place], Bear off-F errjeff i MACARIO, et al. Evalu ation , treat ment, and preve ntion of vitam in D defic iency : an Endoc rine Socie ty clini eddie pract ice guide line. JCEM. 2010; 96(7) :1911 -30. Not Available [facility] ([facility]) [address] [facility], [place], [address], 07/15/2023 08:21:29 07/14/20 23 07/14/2023 AMBIG ABBRE [...] ciate your busin ess. Not Available [facility] ([facility]) [address] [facility], [place], [address], 07/15/2023 08:21:30 07/14/20 23 07/14/2023 AMBIG ABBRE [...] ciate your busin ess. Not Available [facility] ([facility]) [address] [facility], [place], [address], 07/15/2023 08:21:30 07/14/20 23 07/14/2023 AMBIG ABBRE [...] ciate your busin ess. Not Available [facility] ([facility]) [address] [facility], [place], [address], 07/15/2023 08:21:31 09/17/19 23 09/16/2022 US, abdom en No observ ation record ed. [email or web address] [address] [facility], [place], [address], 09/20/2022 09:08:58 11/10/19 23 11/05/2022 DEXA No observ ation record ed. [email or web address] [address], [place], [address], 11/10/2022 16:59:47 11/19/19 23 11/18/2022 MRI, knee, w/o contr ast No observ ation record ed. [email or web address] [facility] [address], [place], [address], 11/18/2022 11:58:51 08/19/19 24 08/19/2023 XR, foot No observ ation record ed. [facility] [address], [place], [address], 08/31/2023 14:08:44 11/02/19 24 11/02/2023 XR, hand No observ ation record ed. [email or web address] [facility] [address], [place], [address], 11/21/2023 17:46:27 Result Notes None recorded. Problems Name Problem SNOMED Code Status Onset Date Resolution Date Notes Provider Name and Address Organization Details Recorded Time Painful mouth 628820116 Active Not Available [facility] 3 16:40:34 Serous otitis media of right ear 978724363138 9104 Active Not Available [facility] 3 16:40:34 Abdominal bloating 187995677 Active Not Available [facility] 3 16:40:34 Acute sinusitis 80670534 Active Not Available [facility] 3 16:40:34 Pain in throat 733089730 Active Not Available [facility] 3 16:40:34 Chronic interstit ial cystitis 685292952 Active Not Available [facility] 3 16:40:34 Abdominal pain 70106180 Active Not Available [facility] 3 16:40:34 Gastroeso phageal reflux disease 662704679 Active Not Available [facility] 3 16:40:34 Snake bite Active Not Available [facility] 3 16:40:34 Tight chest 95884037 Active Not Available [facility] 3 16:40:34 Dyspnea 520569945 Active Not Available [facility] 3 16:40:34 Malignant neoplasm of female breast 727730787 Active 2010, surgery at [facility] Not Available [facility] 3 16:40:34 Seasonal allergy 990898246 Active Not Available [facility] 3 16:40:34 Anxiety 95176194 Active Not Available [facility] 3 16:40:35 Dysuria 63851288 Active Not Available [facility] 3 16:40:35 Hyperlipi demia 20592458 Active Not Available [facility] 3 16:40:35 Otitis media 71036279 Active Not Available [facility] 3 16:40:35 Vitamin D deficienc y 85662192 Active 2022 Karuna Jacobson MD [address], [address], [place], [address] , [employer] 3 07:48:39 Dog bite - wound 537040339 Active 2022 Karuna Jacobson MD [address], [address], [place], [address] , [employer] 3 14:04:33 Osteopeni a 985163981 Active 2023 Karuna Jacobson MD [address], [place], [address] , [employer] 4 12:11:31 Allergic rhinitis 92087554 Active 2023 Karuna Jacobson MD [address], [place], [address] , [employer] 4 12:18:34 Acute situation al disturban ce 165748732 Active 2023 Karuna Jacobson MD [address], [place], [address] , [employer] 4 12:20:20 Pain of left hand 981019938398 103 Active 2023 Karuna Jacobson MD [address], [place], [address] , [employer] [facility] 4 12:23:34 Candidias is of mouth 01891136 Active 2023 Karuna Jacobson MD [address], [place], [address] , [employer] 4 13:45:41 Problem Notes None recorded. Procedures Surgical History Date Name Laterality Status Provider Name and Address Organization Details Recorded Time 07/16 esophagogastroduodenoscopy completed Ana Jacobson MD [address], [place], [address] , [employer] 4 12:00:06 07/16 colonoscopy completed Karuna Jacobson MD [address], [place], [address] , [employer] 4 12:00:23 03/30 Date of Last Pap Smear completed Not Available [facility] 3 16:39:27 07/18 Orthopedic Surgery completed Not Available [facility] 3 16:39:27 07/18 Eye Surgery completed Not Available [facility] 3 16:39:27 Breast Surgery completed Not Available [facility] 3 16:39:27 Breast Surgery completed Not Available [facility] 3 16:39:27 Orthopedic Surgery completed Not Available [facility] 3 16:39:27 Imaging Results Imaging Date Name Status LastModified by Organiz ation Details LastModified Time 09/16/2022 US, abdomen completed [email or web address] [facility] [place] [facility] [address] [facility] [address], [place], [address], 09/20/2022 09:08:58 11/05/2022 DEXA completed [email or web address] [facility] [address] [facility] [address], [place], [address], 11/10/2022 16:59:47 11/18/2022 MRI, knee, w/o contrast completed [email or web address] [facility] [address], [place], [address], 11/18/2022 11:58:51 08/19/2023 XR, foot completed [email or web address] [facility] [address], [place], [address], 08/31/2023 14:08:44 11/02/2023 XR, hand completed [email or web address] [facility] [address], [place], [address], 11/21/2023 17:46:27 Procedure Notes None recorded. Medical Equipment None Reported. Allergies Allergen ID Allergen Name Allergen Category Reaction Reaction Severity Criticality Documentation Date Start Date Code Code System Note Provider Name and Address Organization Details Recorded Time 45869 sulfite environme nt,medica tion flushing Not available Not available 09/15/2022 94470 UNK Not Available [facility] 3 16:41:20 35238 cyclobenz aprine hydrochlo ride medicatio n Not available Not available Not available 09/15/2022 43464 RxNorm sever e dry eyes Not Available [facility] 3 16:41:20 Medications Name Sig Start Date Stop Date Status Note LastModified by Organization Details LastModified Time montelukast 5 mg chewable tablet OIL SPRAYER 2 TABLETS PO D 08/14 completed Not [...] Not Available Not Available Not Available Nasal Crowder 10/25 completed Not Available Not Available Not [...] Not Available Not Available Not Available Fluvirin 6522-9453 45 mcg (15 mcg x 3)/0.5 mL [...] Date Recorded Body mass index (BMI) Body height Oxygen saturation Oxygen saturation in Arterial blood by Pulse oximetry Heart rate Body temperature Body weight Systolic blood pressure Diastolic blood pressure Provider Name and Address Organization Details Last Updated DateTime 3 24.1 kg/m2 157.48 cm 97 % 97 % 75 /min 97.5 [degF] 73056.1 9 g 122 mm[Hg] 78 mm[Hg] Not Available [facility] 3 16:40:08 Date Recorded Body mass index (BMI) Body height Oxygen saturation Oxygen saturation in Arterial blood by Pulse oximetry Heart rate Body temperature Body weight Systolic blood pressure Diastolic blood pressure Provider Name and Address Organization Details Last Updated DateTime 3 24.4 kg/m2 157.48 cm 99 % 99 % 73 /min 96.6 [degF] 11345.8 6 g 118 mm[Hg] 78 mm[Hg] Not Available [facility] 3 16:40:08 Date Recorded Body height Provider Name an d Address Organization Details Last Updated DateTime 10/07/2022 157.48 cm Nimisha Salas CMA [place] [employer] 10/07/2022 14:16:21 Date Recorded Body height Provider Name an d Address Organization Details Last Updated DateTime 05/09/2023 157.48 cm Cheryl Boone RN [facility] [employer] 05/09/2023 15:46:42 Date Recorded Body height Body temperature Body mass index (BMI) Body weight Oxygen saturation Oxygen saturation in Arterial blood by Pulse oximetry Heart rate Systolic blood pressure Diastolic blood pressure Provider Name and Address Organization Details Last Updated DateTime 4 157.48 cm 97.8 [degF] 24.5 kg/m2 75085.6 6 g 98 % 98 % 91 /min 142 mm[Hg] 78 mm[Hg] Mingo Coulter RN [place] [employer] 4 11:49:35 Social History Question Answer Notes LastModified by Organizat ion Details LastModified Time Tobacco Smoking Status Never Smoker Not Available [facility] 09/15/2022 16:39:25 What Is Your Level Of Alcohol Consumption? Occasional [id number] Information not available 09/15/2022 What Is Your Level Of Caffeine Consumption? Occasional [id number] Information not available 09/15/2022 How Much Tobacco Do You Chew? None [id number] Information not available 09/15/2022 In The 14 Days Before Symptom Onset, Have You Had Close Contact With A Laboratory-confir med COVID-19 While That Case Was Ill? No [id number] Information not available 09/15/2022 In The 14 Days Before Symptom Onset, Have You Had Close Contact With A Person Who Is Under Investigation For COVID-19 While That Person Was Ill? No [id number].[id number] [id number] Information not available 09/15/2022 What Type Of Diet Are You Following? REGULAR [id number].[id number] 6778 Information not available 09/15/2022 Which Illicit Or Recreational Drugs Have You Used? No MIGRATION.[id number] 2916 Information not available 09/15/2022 Do You Or Have You Ever Used E-cigarettes Or Vape? Never Used Electronic Cigarettes MIGRATION.[id number] 6094 Information not available 09/15/2022 What Was The Date Of Your Most Recent Tobacco Screening? 10/26/2023 [email or web address] Information not available 10/26/2023 Have You Ever Been Counseled For Unhealthy Alcohol Use? No [id number].[id number] 9569 Information not available 09/15/2022 What Is Your Relationship Status? MIGRATION.[id number] 1298 Information not available 09/15/2022 Do You Use Your Seat Belt Or Car Seat Routinely? Yes [id number].[id number] 9214 Information not available 09/15/2022 Do You Or Have You Ever Used Smokeless Tobacco? Never Used Smokeless Tobacco MIGRATION.[id number] 7250 Information not available 09/15/2022 How Much Tobacco Do You Smoke? No MIGRATION.355593 1079 Information not available 09/15/2022 Do You Use Any Illicit Or Recreational Drugs? No MIGRATION.861427 2787 Information not available 09/15/2022 Has Tobacco Cessation Counseling Been Provided? No MIGRATION.248001 1253 Information not available 09/15/2022 Do You Have Any Dietary Restrictions? No No Beef MIGRATION.830710 5320 Information not available 09/15/2022 Do You Or Have You Ever Used Any Other Forms Of Tobacco Or Nicotine? No MIGRATION.246769 3270 Information not available 09/15/2022 Sex: Female Functional Status Question Answer Note LastModified by Organizat ion Details LastModified Time What is your exercise level? Moderate [id number] Information not available 09/15/2022 Mental Status None recorded. Family History Relationship Description Onset Age of this Age Resolved Age Notes LastModified by Organization Details LastModified Time Father Heart disease [id number] Not available 09/15/2022 16:39:28 Mother Kidney disease [id number] Not available 09/15/2022 16:39:28 Mother Hypertensive disorder [id number] [id number] Not available 09/15/2022 16:39:28 Mother Diabetes mellitus [id number].119 [id number] Not available 09/15/2022 16:39:28 Maternal Grandmother Malignant tumor of colon [email or web address] Not available 2023 11:45:00 Medical History Condition Response MRSA N SLEEP APNEA N ALLERGIES/HAYFEVER N LUNG DISEASE/DISORDER N INSOMNIA N COPD N RADIATION / CHEMOTHERAPY N HIGH CHOLESTEROL / HYPERLIPIDEMIA Y HYPERTHYROIDISM N BLOOD DISEASES N EAR OR HEARING PROBLEMS N HYPOTHYROIDISM N DEPRESSION (INCLUDING POST ) N HAVE YOU BEEN HOSPITALIZED OR SEEN IN E ER IN THE PAST YEAR ? N [...] Time Tdap 3 completed Karuna Jacobson MD [address] [place] [address], [id number], [facility] [employer] 05/10/2023 13:40:41 Influenza, split virus, quadrivalent, preservative 9 completed Not Available [facility] 09/15/2022 16:41:18 Influenza, split virus, quadrivalent, preservative 6 completed Not Available [facility] 09/15/2022 16:41:18 Influenza, split virus, quadrivalent, preservative 6 completed Not Available [facility] 09/15/2022 16:41:18 Td (adult), 5 Lf tetanus toxoid, preservative free, adsorbed 5 completed Not Available [facility] 09/15/2022 16:41:18 Influenza, split virus, quadrivalent, PF 8 completed Not Available [facility] 09/15/2022 16:41:18 Td (adult), 2 Lf tetanus toxoid, preservative free, adsorbed 5 completed Not Available [facility] 09/15/2022 16:41:18 Influenza, split virus, quadrivalent, PF 5 completed Not Available [facility] 09/15/2022 16:41:18 Past Encounters Encounter ID Performer Location Encounter Start Date Encounter Closed Date Diagnosis/Indication Diagnosis SNOMED-CT Code Diagnosis ICD10 Code Diagnosis Note [id number] [facility] Primary Care [facility] [address] [place] [address] [address] [place] [address] 11/26/2020 00:00:00 11/27/2020 09:14:07 [id number] [facility] ENT [place] [address] [place] [address] 12/04/2020 00:00:00 12/04/2020 12:49:20 [id number] _ATHENA_M IGRATION_ DEFAULT_1 _1 , 03/30/2021 00:00:00 03/30/2021 12:21:51 [id number] [facility] [address] [place] [address] [address] [place] [address] 04/10/2021 00:00:00 04/10/2021 18:01:47 [id number] [facility] Primary Care [facility] [address] [place] [address] [address] [place] [address] 05/04/2021 00:00:00 05/04/2021 15:09:24 [id number] [facility] Primary Care [facility] [place] [address] [place] [address] [address] [place] [address] 01/07/2022 00:00:00 01/11/2022 20:01:06 [id number] [facility] Primary Care [facility] [address] [place] [address] [address] [place] [address] 02/17/2022 00:00:00 03/15/2022 20:06:49 [id number] [facility] Primary Care [place] [address] [place] [address] 07/28/2022 00:00:00 07/28/2022 15:02:18 [id number] [facility] Primary [place] [address] [place] [address] 09/02/2022 00:00:00 09/12/2022 20:09:59 [id number] Karuna Jacobson MD [facility] Primary Care [place] [address] [place] [address] 10/07/2022 14:07:22 10/07/2022 14:17:38 [id number] Karuna Jacobson MD [facility] Primary Care [place] [address] [place] [address] 05/09/2023 14:57:38 05/09/2023 15:49:41 [id number] Karuna Jacobson MD [facility] Primary Care [place] [address] [place] [address] 10/26/2023 11:44:04 10/26/2023 12:35:46 Adult health examination 947234196 Z00.00 Colonoscop y 07/16/22 normal repeat 10 yearsSees die turner for pap, DEXA, mammograms Fasting labs up to dateComple christina shingrix seriesTdap 2022Flu vaccine yearlyCovi d booster per cdc recommenda tionsPneum ovax 23 given in 2021 Osteopenia 428630461 M85 .80 DEXA done in 2022walk dailyCalci um + D bid Hyperlipidemia 73641833 E78.5 reviewed resultsok to continue healthy diet/exerc ise Allergic rhinitis 281891 04 J30.9 can take fexofenadi ne and rhinocorti f no improvemen t, consider triamcinol one shot Acute situ ational disturbance 708581329 F43.20 uses diazepam sparingly when driving longer distancesr efill given, last refill was 2021 Pain of left hand 685365 3050 88150 M79.642 Health Concerns Section Related Observation LastModified by Organization Detai ls LastModified Time None Recorded Concern Status LastModified by Organization Details LastModified Time None Recorded Advance Directives Directive None Recorded Payers Encounter Date Sequence Insurance Name Policy Number Policy Tian Covered Member ID Tian Member ID Guarantor Name 10/07/2022 1 [place] [id number] Vasu Corcoran Lorenzo [id number] Sheila Florez Mitzel 05/09/2023 1 [place] [id number] Vasu Corcoran Lorenzo [id number] Sheila Weizel 10/26/2023 1 [place] [id number] Vasu Corcoran Lorenzo [id number] Sheila Ventura Notes Date Note Type [...] allergies and thinks that has been a mcc issues. Uses claritin and rhinocort. Pain pointer finger of left hand Karuna Jacobson MD [address] [facility] [address], [place], [address], [place] [employer] 12/05/2023 14:43:33 OBGyn Episode No OBEpisode recorded.
--- OUTSIDE RECORDS SUMMARY | 2024-09-21 07:58 | XMS_ITS | Clinical Summary ---
Author Organization [facility] Address [address] [place] [address] Care Team Providers Care Back Strip Machine Operator Name Role Phone Alejandra Mazariegos [employer] Primary Care Provider [phone] Allergies Active Allergy Reactions Criticality Noted Date [...] loratadine (CLARITIN ORAL) Acti ve flu vaccine lj0856-67,4 yr,up, (FLUVIRIN 9152-9367 IM) Fluvirin 5985-4004 45 mcg (15 mcg x 3)/0.5 mL [...] Acquired absence of both breasts 01/30/2018 Cancer 07/18/2010 Overview (05/08/2024): L breast cancer. bilateral mastectomy Encounters Date Type Department Care Team Description 07/25/2024 10:15 AM CLIENT MANAGER LARGE LAW Office Visit [facility] [address], [address] [place] [address] Sweetie Carpenter MD Corneal ulcer of right eye (Primary Dx); S/P LASIK (laser assisted in situ keratomileusis) from Last 3 Months Surgical History Surgery Date Site/Laterality Comments LASIK 07/18/2019 - 07/17/2020 Bilateral Medical History Medical History Date Comments Cataract Cancer (HCC) 2010 L breast cancer. bilateral mastectomy Family History Medical History Relation Name Comments Glaucoma Neg Hx Macular degeneration Neg Hx Social History Tobacco Use Types Packs/Day Years Used Date Smoking Tobacco: Never Smokeless Tobacco: Never Comments No Sex and Gender Information Value Date Recorded Sex Assigned at Not on file Legal Sex Female 3:09 AM CLIENT MANAGER LARGE LAW Gender Identity Not on file Sexual Orientation [...] Density Scan 1955 Hepatitis B Screening 1973 Pneumococcal vaccine 65+ (1 of 1 - PCV) 2005 Zoster Vaccine (2 of 3) 05/02/2016 03/07/2016 Well Visit 65+ 02/20/2020 Influenza Vaccine (#1) 2024 9, 05/02/2018, 05/10/2017, Additional history exists DTaP/Tdap/Td Vaccine (2 - Td or Tdap) 05/09/2033 05/09/2023, 11/05/2014, 11/05/2014 Insurance BLUE ACCESS OOS BLUE ACCESS OOS Care Teams Back Strip Machine Operator Relationship Specialty Start Date End Date Alejandra Mazariegos NP [address] [place] [address] PCP - General Nurse Practitioner 05/10/24
--- OUTSIDE RECORDS SUMMARY | 2024-09-21 07:58 | XMS_ITS | Encounter Summary ---
Author Organization [facility] Address [address] [place] [address] Care Team Providers Care Supervisor Vegetable Farming Name Role Phone Unavailable Primary Care Provider Unavailabl e Encounter Details Date Type Department Care Team (Late st Contact Info) Description 05/12/2018 Lab Requisition [facility] Care DermPath Lab [address] [place] [address] Nikia Dawn MD [address] [facility] [address] [place] [address] Social History Tobacco Use Types Packs/Day Years [...] AM CDT) Case Report Dermatopathology Report Case: [id number] Authorizing Provider: Nikia Dawn MD Collected: 05/12/2018 [...] of a non-oriented ellipse of skin measuring [id number]. The epidermal surface consists of a centrally located 8x6mm previous biopsy site. The margin is inked green. The 12 o'clock and 6 o'clock tips are submitted in cassette 1. The remainder of the ellipse is serially sectioned and submitted in cassettes 2-3. Jar 0. [facility] Dermatopathology Laboratory performed the technical component [...] characteristic determined by the Dermatopathology Laboratory at [facility]. These tests need not be, and therefore are not, approved by the [place] Food and Drug Administration. The tests are used for clinical purposes. 3:39 PM CDT DERMATOPATHOLOGY LABORATORY Pathology/Cytolog y TISSUE SPECIMEN FROM SKIN / Unknown 05/12/2018 05/12/2018 1:22 PM CDT Nikia Dawn MD LAB - PATHOLOGY/CYT OLOGY ORDERABLES DERMATOPATHOLOGY LABORATORY [facility] - Department of Dermatology [facility] [facility], 5th [place] [address], [facility] [phone] documented in this encounter Visit Diagnoses Not on filedocumented in this encounter
--- OUTSIDE RECORDS SUMMARY | 2024-09-21 07:58 | XMS_ITS ---
Author Organization [facility] Address [address] [place], [place] [address] Care Team Providers Care Petroleum Products Sales Representative Name Role Phone MITULTIESHA FAYIC Unavailable [phone] Sirisha Jacobson Unavailable Unavailable Allergies Allergen (clinical drug ingredient) Drug/Non Drug Allergy documented on EMR Reaction Allergy Type Onset Date Status Flexeril Unknown Drug Allergy Active Sulfite and/or sulfite derivative (FN) Sulfites Unknown Drug Allergy Active REASON FOR VISIT Injection f/u Encounters Encounter Location Date Provider Diagnosis [facility] Clarissa [address] [place], [place] [id number] 04/12/2024 KIM CHAVES Tarsal tunnel syndrome, left lower limb G57.52 ; Tarsal tunnel syndrome of right side G57.51 ; Displaced fracture of fifth metatarsal bone, left foot, subsequent encounter for fracture with malunion S92.352P ; Osteophyte, right foot M25.774 ; Pain in right foot M79.671 and Left foot pain M79.672 Assessments Encounter Date Diagnosis (ICD Code) Assessment Notes Treatment Notes Treatment Clinical Notes Section Notes 04/12/2024 Tarsal tunnel syndrome, left lower limb (ICD-10 - G57.52) 04/12/2024 Tarsal tunnel syndrome of right side (ICD-10 - G57.51) 04/12/2024 Displaced fracture of fifth metatarsal bone, left foot, subsequent encounter for fracture with malunion (ICD-10 - S92.352P) 04/12/2024 Osteophyte, right foot (ICD-10 - M25.774) 04/12/2024 Pain in right foot (ICD-10 - M79.671) 04/12/2024 Left foot pain (ICD-10 - M79.672) 04/12/2024 Other Following skin prep, a total of 3 ccs of a 1-1-1 mix of 0.5% marcaine plain, Kenalog, and dexamethasone sodium phosphate was injected into the patients micky tarsal tunnel. Plan Of Treatment Treatment Notes Assessment Notes Other Following skin prep, a total of 3 ccs of a 1-1-1 mix of 0.5% marcaine plain, Kenalog, and dexamethasone sodium phosphate was injected into the patients micky tarsal tunnel. Progress Notes * KRISTI ArabellaB:1955 (69 yo F)Acc No.[id number]:04/12/2024 Patient: Sheila BENITO Provider: Velma Chaves DPM :1955 A ge:69 Y S ex:Female Date:04/12/2024 Address:[address] [place], [place] [id number] Subjective: * Chief Complaints: * I njection f/u * HPI: H PI: Follow Up Visit P atient presents for follow-up visit for injections in both feet. Had to reschedule her original f/u appointment bc of eye infection., Patient states their problem is, unchanged. States that the injections didn't help much at all., MA: mf.? * Medical History: * Surgical History: b unionectomy Carpal Tunnel release Left ankle fracture surgery mastectomy Lasik * Hospitalization/Major Diagno stic Procedure: * Family History: F ather: , heart disease. M other: , arthritis, , hypertension. * Medications: * Allergies: F lexerilSulfites Objective: * Vitals: * Examination: C onstitutional: Constitutional T he patient is awake, alert, well developed, well groomed and well nourished. . D ermatologic: Skin findings: S kin is warm, dry, supple with no breaks in the skin. . Nail pathology: N ails 1-5 bilateral are normal in appearance and thickness. No discoloration. . Ulcer: T here is no evidence of ulceration noted at this time . Hyperkeratotic Skin Lesion T here is no evidence of hyperkeratosis . M usculoskeletal: Muscle Strength M uscle strength is 5/5 in regards to dorsiflexion, plantarflexion, inversion, and eversion in bilateral lower extremities. . Foot Structure T he foot structure is noted to be normal bilaterally . Pain on palpation T here is pain on palpation and a palpable bump on the shaft of the right 5th metatarsal. Plantar Fascia T here is pain on palpation to the left tarsal tunnel . 1st MPJ T he range of motion is limited and p ainful at end range of dorsiflexion right foot. Left 1st MPJ is fused in a adducted position.. Gait T here is normal gait noted . N eurologic: Muscle power: 5 /5 bilaterally . Gross sensation G ross sensation is intact to light touch. . V ascular: Dorsalis pedis pulse: 2 /4 bilateral . Posterior tibial pulse: 2 /4 bilaterally . Capillary refill: l ess than 3 seconds bilaterally . Temperature gradient: w ithin normal limits . ? Assessment: * Assessment: 1. T arsal tunnel syndrome, left lower limb - G57.52 (Primary) 2 . T arsal tunnel syndrome of right side - G57.51 3 . D isplaced fracture of fifth metatarsal bone, left foot, subsequent encounter for fracture with malunion - S92.352P 4 . Osteophyte, right foot - M25.774 5 . P ain in right foot - M79.671 ? 6 . L eft foot pain - M79.672 Plan: * Treatment: * Procedure Codes: 2 0550 INJ TENDON SHEATH/LIGAMENT, Modifiers: [place] [address] INJ TENDON SHEATH/LIGAMENT, Modifiers: 59 , RT * Billing Information: * Visit Code: 67639 Office Visit, Est Pt., Level 3. Modifiers: 25 * Procedure Codes: 56658 INJ TENDON SHEATH/LIGAMENT. [place]: [place] [address]61 INJ TENDON SHEATH/LIGAMENT. Modifiers: 59, RT * Sign off status: Completed true * Provider: Velma Chaves DPM Date: 0 04/12/2024 Generated for Von Kelleyg/Zenonitting on: 0 09/21/2024 07:58 AM AUTO MECHANICS INSTRUCTOR History and Physical Notes * HPI (History of Present Illness) Category Sub-Category Detail Notes Category Not es HPI Follow Up Visit Patient presents for follow-up visit for injections in both feet. Had to reschedule her original f/u appointment bc of eye infection., Patient states their problem is, unchanged. States that the injections didn't help much at all., MA: mf Examination Category Sub-Category Detail Notes Category Not es Constitutional Constitutional The patient is a wake, alert, well developed, well groomed and well nourished. Dermatologic Skin findings: Skin is warm, dr y, supple with no breaks in the skin. Nail pathology: Nails 1-5 bilateral are normal in appearance and thickness. No discoloration. Ulcer: There is no evidence of ulceration noted at this time Hyperkeratotic Skin Lesion There is no e vidence of hyperkeratosis Musculoskeletal Muscle Strength Muscle strength is 5/5 in regards to dorsiflexion, plantarflexion, inversion, and eversion in bilateral lower extremities. Pain on palpation There is pain on pal pation and a palpable bump on the shaft of the right 5th metatarsal Plantar Fascia There is pain on pal pation to the left tarsal tunnel 1st MPJ The range of motion is limited and painful at end range of dorsiflexion right foot. Left 1st MPJ is fused in a adducted position. Foot Structure The foot structure i s noted to be normal bilaterally Gait There is normal gait noted Neurologic Muscle power: 5/5 bilaterally Gross sensation Gross sensation is i ntact to light touch. Vascular Dorsalis pedis pulse: 2/4 bilateral Posterior tibial pulse: 2/4 bilaterally Capillary refill: less than 3 seconds bilaterally Temperature gradient: within normal limi ts
--- OUTSIDE RECORDS SUMMARY | 2024-09-21 07:58 | XMS_ITS | Clinical Summary ---
Author Organization [facility] Address [address] [facility] [place] [address] Care Team Providers Care Dormitory Maid Name Role Phone Unavailable Primary Care Provider Unavailabl e Source Comments [facility],non-owned Affiliates and Associated Physician Practices is amultiple site organization consisting of ambulatory clinics and hospital sitesin [place] and [place]. This disclosure is being madepursuant to the Care Everywhere program and may not contain all information available regarding this patient. Last updated 18.[facility] Social History Tobacco Use Types Packs/Day Years [...]
--- OUTSIDE RECORDS SUMMARY | 2024-09-21 07:58 | XMS_ITS | Referral Summary ---
Author Organization [facility] Address [address] [place] [address] Care Team Providers Care Psychologists Name Role Phone DelilahAlejandra Trish LWEIS Primary Care Provider [phone] Encounters Date Type Department Care Team Description 07/25/2024 10:15 AM CONVEYOR BELT INSTALLER Office Visit [facility] [address] [facility] [address], [address] [place] [address] Sweetie Carpenter MD Corneal ulcer [...] loratadine (CLARITIN ORAL) Acti ve flu vaccine ,4 yr,up, (FLUVIRIN 9384-7113 IM) Fluvirin 6525-8131 45 mcg (15 mcg x 3)/0.5 mL [...] mg capsule Active influenza quadrivalent (Afluria Qd 2018-,3yr up,,PF,) 60 mcg (15 [...] on file Legal Sex Female 3:09 AM CONVEYOR BELT INSTALLER Gender Identity Not on file Sexual Orientation [...] Plan of Treatment Not on file Insurance [employer] OOS [employer] OOS Care Teams Psychologists Relationship Specialty Start Date End Date Alejandra Mazariegos NP [address] [place] [address] PCP - General Nurse Practitioner 05/10/24
--- OUTSIDE RECORDS SUMMARY | 2024-09-21 07:58 | XMS_ITS | Encounter Summary ---
Author Organization [facility] Address [address] [place] [address] Care Team Providers Care Clay Caster Name Role Phone Unavailable Primary Care Provider Unavailabl e Encounter Details Date Type Department Care Team (Late st Contact Info) Description 03/22/2018 Lab Requisition [facility] Care DermPath Lab [address] [facility] [place] [id number] Nikia Dawn MD [address] [facility] [address] [place] [address] Social History Tobacco Use Types Packs/Day Years [...] AM CDT) Case Report Dermatopathology Report Case: [id number] Authorizing Provider: Nikia Dawn MD Collected: 03/21/2018 12:00 AM Pathologist: Melva Delaney MD Received: 03/22/2018 06:20 AM Specimen: Skin, left post thigh 8 2:09 PM CDT DERMATOPATHOLOGY LABORATORY Addendum 1 At the request of the diagnosing physician, the technical component for MART-1/Melan A was performed by [facility] Dermatopathology Laboratory. 8 2:09 PM CDT DERMATOPATHOLOGY LABORATORY Addendum electronically signed by Melva Delaney MD on 03/24/2018 at 2:09 PM Clinical History R/O nevus, irregular color. Check margins. 8 2:09 PM CDT DERMATOPATHOLOGY LABORATORY Gross Description Specimen A: Received is one formalin filled container labeled with the patient's name and designated left post thigh. The specimen consists of a shave measuring [id number]. The margin is inked green. Jar 0. [facility] Dermatopathology Laboratory performed the technical component [...] determined by the Dermatopathology Laboratory at [facility]. These tests need not be, and therefore are not, approved by the [place] Food and Drug Administration. The tests are used for clinical purposes. 8 2:09 PM T DERMATOPATHOLOGY LABORATORY Pathology/Cytolog y TISSUE SPECIMEN FROM SKIN / Unknown 03/21/2018 03/22/2018 6:20 AM CDT Nikia Dawn MD LAB - PATHOLOGY/CYT OLOGY ORDERABLES DERMATOPATHOLOGY LABORATORY [facility] - Department of Dermatology [address] [place] [address], 5th Floor Lab [address] [phone] documented in this encounter Visit Diagnoses Not on filedocumented in this encounter
--- OUTSIDE RECORDS SUMMARY | 2024-09-21 07:58 | XMS_ITS ---
Author Organization [facility] Address [address] [place], [place] [address] Care Team Providers Care Supervising Editor News Reel Name Role Phone KIM CHAVES Unavailable [phone] Sirisha Jacobson Unavailable Unavailable Allergies Allergen (clinical drug ingredient) Drug/Non Drug Allergy documented on EMR Reaction Allergy Type Onset Date Status Flexeril Unknown Drug Allergy Active Sulfite and/or sulfite derivative (FN) Sulfites Unknown Drug Allergy Active REASON FOR VISIT 2nd opinion Vital Signs Height 61 in 03/15/2024 Weight 134 lbs 03/15/2024 BMI 25.32 kg/m2 03/15/2024 Height-cm 154.94 cm 03/15/2024 Weight-kg 60.78 kg 03/15/2024 Encounters Encounter Location Date Provider Diagnosis [facility] [address] [place], [place] [id number] 03/15/2024 KIM CHAVES Tarsal tunnel syndrome, left lower limb G57.52 ; Displaced fracture of fifth metatarsal bone, left foot, subsequent encounter for fracture with malunion S92.352P ; Osteophyte, right foot M25.774 ; Pain in right foot M79.671 and Left foot pain M79.672 Assessments Encounter Date Diagnosis (ICD Code) Assessment Notes Treatment Notes Treatment Clinical Notes Section Notes 03/15/2024 Tarsal tunnel syndrome, left lower limb (ICD-10 - G57.52) 03/15/2024 Displaced fracture of fifth metatarsal bone, left foot, subsequent encounter for fracture with malunion (ICD-10 - S92.352P) 03/15/2024 Osteophyte, right foot (ICD-10 - M25.774) 03/15/2024 Pain in right foot (ICD-10 - M79.671) 03/15/2024 Left foot pain (ICD-10 - M79.672) 03/15/2024 Other Following skin prep, a total of 3 ccs of a 1-1-1 mix of 0.5% marcaine plain, Kenalog, and dexamethasone sodium phosphate was injected into the patients left tarsal tunnel. Following skin prep, a total of 3 ccs of a 1-1-1 mix of 0.5% marcaine plain, Kenalog, and dexamethasone sodium phosphate was injected into the patients right 5th metatarsal Plan Of Treatment Treatment Notes Assessment Notes Other Following skin prep, a total of 3 ccs of a 1-1-1 mix of 0.5% marcaine plain, Kenalog, and dexamethasone sodium phosphate was injected into the patients left tarsal tunnel. Following skin prep, a total of 3 ccs of a 1-1-1 mix of 0.5% marcaine plain, Kenalog, and dexamethasone sodium phosphate was injected into the patients right 5th metatarsal Progress Notes * Nam VENTURAaDOB:1955 (69 yo F)Acc No.[id number]:03/15/2024 Progress Notes Patient: Sheila BENITO Provider: Velma Chaves DPM :1955 A ge:69 Y S ex:Female Date:03/15/2024 Address:[address] [place], [place] [id number] Subjective: * Chief Complaints: * 1 . 2nd opinion. * HPI: H PI: New Complaint P atient presents for a new patient consultation. Patient complains of an issue to bilateral feet. Patient states she has been seeing another doctor for a fracture in her right foot. She states she fell and broke her 5th metatarsal in September. She was told it was healing, but it is now numb, and she feels something sticking out when she rests her foot on the lateral side. She also states the ball of her left foot feels thick and her toes are numb. She states she was diagnosed with a neuroma and made custom orthotics, but they are not helping. The doctor sent her for a nerve conduction test and it showed tarsal tunnel syndrome. She states he prescribed her gabapentin, but she didn't like the way it made her feel. She states she would just like a 2nd opinion. MA: shirley. * Medical History: A rthritis. * Surgical History: b unionectomy , Carpal Tunnel release , Left ankle fracture surgery , mastectomy , Lasik . * Family History: F ather: , heart disease. M other: , arthritis, , hypertension. * Allergies: F lexeril, Sulfites. Objective: * Vitals: S hoe Size: 6.5, Wt:134lbs, Wt-k.78 kg, Ht: 61 in, Ht-cm: 154.94 cm, BMI:25.32Index, Body Surface Area: 1.62. * Examination: C onstitutional: Constitutional T he [...] gradient: w ithin normal limits . ? X -Ray: LEFT FOOT T here is no evidence of fracture, dislocation, or other osseous lesions. Evidence of prior 1st MPJ fusion and ankle ORIF. RIGHT FOOT H ealed fracture of the 5th metatarsal shaft. The fracture is healed in an angulated position and there is a prominent spike of bone protruding laterally. Narrowing of the joint space and dorsal spurring noted at the first metatarsal phalangeal joint. . Assessment: * Assessment: 1. T arsal tunnel syndrome, left lower limb - G57.52 (Primary) 2 . D isplaced fracture of fifth metatarsal bone, left foot, subsequent encounter for fracture with malunion - S92.352P 3 . O steophyte, right foot - M25.774 4 . P ain in right foot - M79.671 5 . L eft foot pain - M79.672 Plan: * Treatment: * Procedure Codes: 2 0550 INJ TENDON SHEATH/LIGAMENT, Modifiers: RT , 40707 INJ TENDON SHEATH/LIGAMENT, Modifiers: 59 , [place], [address] X-RAY EXAM OF FOOT, Modifiers: RT , 06891 X-RAY EXAM OF FOOT, Modifiers: LT * Billing Information: * Visit Code: 76666 Office Visit, New Pt., Level 3. Modifiers: 25 * Procedure Codes: 44884 INJ TENDON SHEATH/LIGAMENT. Modifiers: RT 31754 INJ TENDON SHEATH/LIGAMENT. Modifiers: 59, [place] [address] X-RAY EXAM OF FOOT. Modifiers: RT 86968 X-RAY EXAM OF FOOT. Modifiers: LT * Sign off status: Completed true * Provider: Velma Chaves DPM Date: 0 03/15/2024 Generated for Von floyd/Rola/Leah on: 0 09/21/2024 07:58 AM LEAD SETTER History and Physical Notes * HPI (History of Present Illness) Category Sub-Category Detail Notes Category Not es HPI New Complaint Patient presents for a new patient consultation. Patient complains of an issue to bilateral feet. Patient states she has been seeing another doctor for a fracture in her right foot. She states she fell and broke her 5th metatarsal in September. She was told it was healing, but it is now numb, and she feels something sticking out when she rests her foot on the lateral side. She also states the ball of her left foot feels thick and her toes are numb. She states she was diagnosed with a neuroma and made custom orthotics, but they are not helping. The doctor sent her for a nerve conduction test and it showed tarsal tunnel syndrome. She states he prescribed her gabapentin, but she didn't like the way it made her feel. She states she would just like a 2nd opinion. MA: shirley Examination Category Sub-Category Detail Notes Category Not es X-Ray LEFT FOOT There is no evid ence of fracture, dislocation, or other osseous lesions. Evidence of prior 1st MPJ fusion and ankle ORIF RIGHT FOOT Healed fracture of t he 5th metatarsal shaft. The fracture is healed in an angulated position and there is a prominent spike of bone protruding laterally. Narrowing of the joint space and dorsal spurring noted at the first metatarsal phalangeal joint. Constitutional Constitutional The patient is a wake, [...]
--- OUTSIDE RECORDS SUMMARY | 2024-09-21 07:58 | XMS_ITS | Patient Health Record ---
Author Organization [facility] Address [address] [facility] [address] [place], [place] [id number] Care Team Providers Care High School Music Teacher Name Role Phone KIM GOFF Unavailable [phone] Sirisha Jacobson Unavailable Unavailable Allergies Allergen (clinical drug ingredient) Drug/Non Drug Allergy documented on EMR Reaction Allergy Type Onset Date Status Flexeril Unknown Drug Allergy Active Sulfite and/or sulfite derivative (FN) Sulfites Unknown Drug Allergy Active Reason For Referral No Information Vital Signs Height-cm 154.94 cm 03/15/2024 Weight-kg 60.78 kg 03/15/2024 Height 61 in 03/15/2024 Weight 134 lbs 03/15/2024 BMI 25.32 kg/m2 03/15/2024 Encounters Encounter Location Date Provider Diagnosis [facility] [address] [place] [id number] 03/15/2024 KIM GOFF Tarsal tunnel syndrome, left lower limb G57.52 ; Displaced fracture of fifth metatarsal bone, left foot, subsequent encounter for fracture with malunion S92.352P ; Osteophyte, right foot M25.774 ; Pain in right foot M79.671 and Left foot pain M79.672 [facility] [address] [place], [place] [id number] 04/12/2024 KIM GOFF Tarsal tunnel syndrome, left lower limb G57.52 [...] fracture with malunion (ICD-10 - S92.352P) 04/12/2024 Tarsal tunnel syndrome, left lower limb (ICD-10 - G57.52) 04/12/2024 Tarsal tunnel syndrome of right side (ICD-10 - G57.51) 04/12/2024 Displaced fracture of fifth metatarsal bone, left foot, subsequent encounter for fracture with malunion (ICD-10 - S92.352P) 03/15/2024 Osteophyte, right foot (ICD-10 - M25.774) 03/15/2024 Pain in right foot (ICD-10 - M79.671) 04/12/2024 Osteophyte, right foot (ICD-10 - M25.774) 04/12/2024 Pain in right foot (ICD-10 - M79.671) 03/15/2024 Left foot pain (ICD-10 - M79.672) 04/12/2024 Left foot pain (ICD-10 - M79.672) 03/15/2024 [...] injected into the patients right 5th metatarsal 04/12/2024 Other Following skin prep, a total of 3 ccs of a 1-1-1 mix of 0.5% marcaine plain, Kenalog, and dexamethasone sodium phosphate was injected into the patients micky tarsal tunnel. Plan Of Treatment No Information Insurance Providers Payer Name Payer Address Payer Phone Subscriber Number Group Number Insured Name Patient Relationship to Insured Coverage Start Date Coverage End Date Blue Cross Blue Shield [place] ([facility]) ATTN CLAIMS [address] [place] [address] [id number] Sheila Ventura Self - patient is the insured 4 Medical (General) History Medical History History ICD Code Arthritis Surgical History Surgery Date(Month/Year) bunionectomy Carpal Tunnel release Left ankle fracture surgery mastectomy Lasik
--- OUTSIDE RECORDS SUMMARY | 2024-09-21 07:58 | XMS_ITS | Referral Summary ---
Author Organization [facility] Address [address] [place] [place] [address] Care Team Providers Care Rubber Compounder Formulator Name Role Phone Unavailable Primary Care Provider Unavailabl e Source Comments [facility],non-owned Affiliates and Associated Physician Practices is amultiple site organization consisting of ambulatory clinics and hospital sitesin [place], [place], [place] and [place]. This disclosure is being madepursuant to the Care Everywhere program and may not contain all information available regarding this patient. Last updated 18.[facility] [employer] Social History Tobacco Use Types Packs/Day Years Used Date Smoking Tobacco: Never Assessed Sex and Gender Information Value Date Recorded Sex Assigned at Not on file Gender Identity Not on file Sexual Orientation Not on file Plan of Treatment Not on file
== END 2024-09-21 07:50 | disposition home or self-care (01) ==
PROVIDERS: PCP Family Medicine; Visit Provider Physician Assistant Medical
DX: N63.20 Unspecified lump in the left breast, unspecified quadrant (principal); Z85.3 Personal history of malignant neoplasm of breast
CPT/HCPCS: 77049; A9579; C8908

== ENCOUNTER 2025-04-05 11:21 | Outpatient (CLI) | payer MEDICARE, SELFPAY ==
--- OUTSIDE RECORDS SUMMARY | 2024-03-29 03:10 | XMS_ITS ---
[facility] Address [address] [place], [place] [id number] Care Team Providers Care Managing Partner [employer] [place] Name Role Phone KIM CHAVES Unavailable [phone] Sirisha Jacobson Unavailable Unavailable REASON FOR VISIT *Injection follow-up Encounters Encounter Location Date Provider Diagnosis [facility] [place] [address] [place], [place] [id number] 03/29/2024 KIM CHAVES Plan Of Treatment No Information Progress Notes * Arabella VENTURAB:1955 (70 yo F)Acc No.[id number]:03/29/2024 Patient: Sheila BENITO Provider: Velma Chaves DPM :1955 A ge:69 Y S ex:Female Date:03/29/2024 Address:[address] [place], [place] [id number] Subjective: * Chief Complaints: * 1 . *Injection follow-up. * Medical History: Objective: * Vitals: Assessment: Plan: * Treatment: * Billing Information: * Visit Code: * Procedure Codes: * Electronic signature of KIM CHAVES DPM on 04/05/2025 at 11:26 AM CDT Sign off status: Pending * Provider: Velma Chaves DPM Date: 0 03/29/2024 Generated for Von floyd/Rola/eTransmitting on: 0 04/05/2025 11:26 AM CDT
--- NOTE | ~2025-04-05 | US_ITS ---
Clinical history:6 month follow-up left breast EXAM:Ultrasound breast bilateral limited TECHNIQUE:Multiple static grayscale images and color Doppler images were obtained of the areas of concern in the left breast. Comparisons:Breast ultrasound 08/22/2024; breast MRI 09/21/2024 FINDINGS: There is a well-circumscribed 9 x 3 x 6 mm hypoechoic mass in the left breast at the 2:00 position 9 cm from the nipple. No internal color Doppler flow. No posterior acoustic shadowing. The finding is grossly stable dating back to 08/22/2024. There is a 5 x 7 x 2 mm hypoechoic mass in the left retroareolar region. The finding is wider than tall. The finding is similar size and configuration as compared to the study from 08/22/2024. IMPRESSION: 1. Probably benign masses in the left breast. A diagnostic left breast mammogram and a diagnostic left breast ultrasound in 6 months is recommended. BI-RADS 3-Probably benign-Short interval follow-up suggested. Reviewed, dictated and finalized at location Q. IMPRESSION: 1. Probably benign masses in the left breast. A diagnostic left breast mammogra m and a diagnostic left breast ultrasound in 6 months is recommended. BI-RADS 3-Probably benign-Short interval follow-up suggested.
--- OUTSIDE RECORDS SUMMARY | 2025-04-05 11:27 | XMS_ITS | Clinical Summary ---
Author Organization [facility] [employer] Address [address] [place] [address] Care Team Providers Care Change Over Name Role Phone Unavailable Primary Care Provider Unavailabl e Source Comments [facility] [employer],non-owned Affiliates and Associated Physician Practices is amultiple site organization consisting of ambulatory clinics and hospital sitesin [place], [place], [place] and [place]. This disclosure is being madepursuant to the Care Everywhere program and may not contain all information available regarding this patient. Last updated 18.[facility] [employer] Social History Tobacco Use Types Packs/Day Years Used Date Smoking Tobacco: Never Assessed Comments Unknown Sex and Gender Information Value Date Recorded Sex Assigned at Not on file Legal Sex Female 11:16 AM CDT Gender Identity Not on file Sexual [...] 2005 ZOSTER VACCINE (1 of 2) 2005 DEPRESSION SCREENING 07/18/2024 COVID-19 VACCINE (1 - 2023-2 5 season) 2025 INFLUENZA VACCINE (#1) 2025 Respiratory Syncytial Virus (RSV) Vaccine Pt: or [...] to complete this topic MENINGOCOCCAL (Group B) VACC INE SHARED DECISION-MAKING Aged Out No longer eligibl e based on patient's age to complete this topic MENINGOCOCCAL GROUPS A/C/Y/W VACCINE Aged Out No longer eligible b ased on patient's age to complete this topic Insurance KARYNA
--- OUTSIDE RECORDS SUMMARY | 2025-04-05 11:27 | XMS_ITS | Encounter Summary ---
Author Organization [facility] Address [address] [place] [address] Care Team Providers Care Electronic Science Teacher Name Role Phone Unavailable Primary Care Provider Unavailabl e Encounter Details Date Type Department Care Team (Late st Contact Info) Description 03/22/2018 Lab Requisition [facility] [address] [facility], [place] [phone] Nikia Dawn MD [address] [facility] [address] [place] [address] Social History Tobacco Use Types Packs/Day Years [...] AM CDT) Case Report Dermatopathology Report Case: [id number] Authorizing Provider: Nikia Dawn MD Collected: 03/21/2018 12:00 AM Pathologist: Melva Delaney MD Received: 03/22/2018 06:20 AM Specimen: Skin, left post thigh 8 2:09 PM CDT DERMATOPATHOLOGY LABORATORY Addendum 1 At the request of the diagnosing physician, the technical component for MART-1/Melan A was performed by [facility] Dermatopathology Laboratory. 8 2:09 PM CDT DERMATOPATHOLOGY LABORATORY Addendum electronically signed by Melva Delaney MD on 03/24/2018 at 1409 CDT Clinical History R/O nevus, irregular color. Check margins. 2:09 PM CDT DERMATOPATHOLOGY LABORATORY Gross Description Specimen A: Received is one formalin filled container labeled with the patient's name and designated left post thigh. The specimen consists of a shave measuring [id number]. The margin is inked green. Jar 0. [facility] Dermatopathology Laboratory performed the technical component only. 2:09 PM CDT DERMATOPATHOLOGY LABORATORY Embedded Images 2:09 PM CDT DERMATOPATHOLOGY LABORATORY DISCLAIMER An external and internal positive and negative controls are appropriate for the histochemical, immunohistochemical and immunofluorescence stain(s) in this case (if any), except where stated explicitly. The performance characteristics of the stain(s) cited in this report were developed and its performance characteristic determined by the Dermatopathology Laboratory at [facility]. These tests need not be, and therefore are not, approved by the [place] Food and Drug Administration. The tests are used for clinical purposes. 2:09 PM T DERMATOPATHOLOGY LABORATORY at 1519 CDT Pathology/Cytolog y TISSUE SPECIMEN FROM SKIN / Unknown 03/21/2018 03/22/2018 6:20 AM CDT Nikia Dawn MD LAB - PATHOLOGY/CYTOLOGY OR DERABLES Edited Result - Final DERMATOPATHOLOGY LABORATORY [facility] - Department of Dermatology [address] [place] [address] 5th Floor Lab B [address] [phone] documented in this encounter Visit Diagnoses Not on filedocumented in this encounter
--- OUTSIDE RECORDS SUMMARY | 2025-04-05 11:27 | XMS_ITS | Clinical Summary ---
Author Organization [facility] Address [address] [place] [address] Care Team Providers Care Director Of Rehabilitation And Wellness Name Role Phone Alejandra Mazariegos DRAFTING LAYOUT MAN Primary Care Provider [phone] Allergies Active Allergy Reactions Criticality Noted Date [...] loratadine (CLARITIN ORAL) Acti ve flu vaccine [id number],4 yr,up, (FLUVIRIN 4667-6182 IM) Fluvirin 0305-6421 45 mcg (15 mcg x 3)/0.5 mL [...] Overview (05/08/2024): L breast cancer. 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
--- OUTSIDE RECORDS SUMMARY | 2025-04-05 11:27 | XMS_ITS | Encounter Summary ---
Author Organization [facility] Address [address] [place] [address] Care Team Providers Care Flat Knitter Helper Name Role Phone Unavailable Primary Care Provider Unavailabl e Encounter Details Date Type Department Care Team (Late st Contact Info) Description 05/12/2018 Lab Requisition [facility] [address] [facility] [place] [id number] Nikia Dawn MD [address] [facility] [address] [place] [address] Social History Tobacco Use Types Packs/Day Years [...] AM CDT) Case Report Dermatopathology Report Case: [id number] Authorizing Provider: Nikia Dawn MD Collected: 05/12/2018 12:00 AM Pathologist: Melva Delaney MD Received: 05/12/2018 01:22 PM Specimen: Skin, left post thigh 8 3:39 PM CDT DERMATOPATHOLOGY LABORATORY Clinical History Bx proven melanocytic proliferation. Bx proven. Check margins. 8 3:39 PM CDT DERMATOPATHOLOGY LABORATORY Gross Description Specimen A: Received is one formalin filled container labeled with the patient's name and designated left post thigh. The specimen consists of a non-oriented ellipse of skin measuring [id number]. The epidermal surface consists of a centrally located 8x6mm previous biopsy site. The margin is inked green. The 12 o'clock and 6 o'clock tips are submitted in cassette 1. The remainder of the ellipse is serially sectioned and submitted in cassettes 2-3. Jar 0. [facility] Dermatopathology Laboratory performed the technical component [...] characteristic determined by the Dermatopathology Laboratory at [facility]. These tests need not be, and therefore are not, approved by the [place] Food and Drug Administration. The tests are used for clinical purposes. 3:39 PM CDT DERMATOPATHOLOGY LABORATORY at 1539 CDT Pathology/Cytolog y TISSUE SPECIMEN FROM SKIN / Unknown 05/12/2018 05/12/2018 1:22 PM CDT Nikia Dawn MD LAB - PATHOLOGY/CYTOLOGY OR DERABLES Final Result DERMATOPATHOLOGY LABORATORY [facility] - Department of Dermatology [address] [place] [address], 5th Floor [place] [address], [facility] [phone] documented in this encounter Visit Diagnoses Not on filedocumented in this encounter
--- OUTSIDE RECORDS SUMMARY | 2025-04-05 11:27 | XMS_ITS | Encounter Summary ---
Author Organization [facility] Address [address] [place] [address] Care Team Providers Care Pharmaceutical Officer Name Role Phone Unavailable Primary Care Provider Unavailabl e Encounter Details Date Type Department Care Team (Late st Contact Info) Description 04/20/2018 Lab Requisition [facility] [address] [facility] [place] [phone] Nikia Dawn MD [address] [facility] [address] [place] [address] Social History Tobacco Use Types Packs/Day Years [...] AM CDT) Case Report Dermatopathology Report Case: [id number] Authorizing Provider: Nikia Dawn MD Collected: 04/18/2018 [...] The specimen consists of a punch measuring [id number]. The margin is inked green. The specimen is bisected and submitted in 1 cassette. Jar 0. [facility] Dermatopathology Laboratory performed the technical component only. 8 12:53 PM CDT DERMATOPATHOLOGY LABORATORY Embedded Images 12:53 PM CDT DERMATOPATHOLOGY LABORATORY DISCLAIMER An external and internal positive and negative controls are appropriate for the histochemical, immunohistochemical and immunofluorescence stain(s) in this case (if any), except where stated explicitly. The performance characteristics of the stain(s) cited in this report were developed and its performance characteristic determined by the Dermatopathology Laboratory at [facility]. These tests need not be, and therefore are not, approved by the [place] Food and Drug Administration. The tests are used for clinical purposes. 8 12:53 PM T DERMATOPATHOLOGY LABORATORY at 1253 CDT Pathology/Cytolog y TISSUE SPECIMEN FROM SKIN / Unknown 04/18/2018 04/20/2018 6:38 AM CDT us Nikia Dawn MD LAB - PATHOLOGY/CYTOLOGY OR DERABLES Final Result DERMATOPATHOLOGY LABORATORY [facility] - Department of Dermatology [facility] [facility], [address] [place] [address], [facility] [phone] documented in this encounter Visit Diagnoses Not on filedocumented in this encounter
--- OUTSIDE RECORDS SUMMARY | 2025-04-05 11:27 | XMS_ITS | Clinical Summary ---
Author Organization [facility] Address [address] [place] [address] Care Team Providers Care Behavioral Health Director Name Role Phone Unavailable Primary Care Provider [...] 1 - Tdap) 1974 Mammogram Screening 1995 Pneumococcal Vaccine: 50+ Ye ars (1 of 1 - PCV) 2005 Zoster Vaccines (1 of 2) 2005 Dexa Scan (General) 02/20/2020 COVID-19 Vaccine (1 - 2023-2 5 season) 2025 RSV Immunization or 60+ Years (1 - [...] Priority Date/Time Associated Diagnosis Comments COLONOSCOPY Routine LEAD WAREHOUSE ASSOCIATE from Last 3 Months or Most Recently Relevant to Health Maintenance Results * Colonoscopy ( LEAD WAREHOUSE ASSOCIATE) Narrative [facility] TO EPIC CONVERSION - LEAD WAREHOUSE ASSOCIATE Documented hx of procedure Procedure Note , Generic Conversion, - 05/21/2018 Documented hx of procedure us Generic Conversion Md [facility]AR[facility] GI PROCEDURE ORDERABLES Final Result [facility] TO EPIC CONVERSION from Last 3 Months or Most Recently Relevant to Health Maintenance
--- OUTSIDE RECORDS SUMMARY | 2025-04-05 11:27 | XMS_ITS | Patient Health Record ---
Author Organization [facility] Address [address] [place], [place] [id number] Care Team Providers Care Geological Technician Name Role Phone SHELL KIM Unavailable [phone] Sirisha Jacobson Unavailable Unavailable Allergies Allergen (clinical drug ingredient) Drug/Non Drug Allergy documented on EMR Reaction Allergy Type Onset Date Status Flexeril Unknown Drug Allergy Active Sulfite and/or sulfite derivative (FN) Sulfites Unknown Drug Allergy Active Reason For Referral No Information Immunizations Vaccine Route Administration Date Status Comme nts Influenza, high dose seasonal Unknown 04/16/2023 Admini stered Pneumococcal conjugate PCV 13 Unknown 06/16/2022 Admini stered Vital Signs Height-cm 154.94 cm 04/12/2024 Weight-kg 60.78 kg 04/12/2024 Height 61 in 04/12/2024 Weight 134 lbs 04/12/2024 BMI 25.32 kg/m2 04/12/2024 Encounters Encounter Location Date Provider Diagnosis [facility] [address] [place], [place] [id number] 04/12/2024 KIM GOFF Tarsal tunnel syndrome, left [...] Insured Coverage Start Date Coverage End Date [facility] ([facility]) ATTN CLAIMS [address] [place] [address] [id number] Sheila Ventura Self - patient is the insured 4 Medical (General) History Medical History History ICD Code Arthritis Surgical History Surgery Date(Month/Year) bunionectomy Carpal Tunnel release Left ankle fracture surgery mastectomy Lasik
== END 2025-04-05 11:22 | disposition home or self-care (01) ==
LOC: ANHFOHIMG 11:23
PROVIDERS: PCP Physician Assistant Medical; Visit Provider Surgery
DX: Z85.3 Personal history of malignant neoplasm of breast (principal); N63.21 Unspecified lump in the left breast, upper outer quadrant; N63.10 Unspecified lump in the right breast, unspecified quadrant; R92.8 Other abnormal and inconclusive findings on diagnostic imaging of breast
CPT/HCPCS: 76642